=== PATIENT | male | born 1955 | race Caucasian/White ===

== ENCOUNTER 2016-06-18 17:56 | Inpatient (IN) | payer OTHER, MEDICAID ==
[~2016-06-18] VITALS: Ht 177.8 cm; Wt 79.9 kg
[~2016-06-18 17:56] MED LIST: AMLO10TA5 PO; ATEN100T4 PO; CLON0.2T11 PO; DOXA1TAB PO; HYDR1TAB69 PO; HYDR25TA4 PO
[2016-06-18 18:11] VITALS: BP 185/129; PULSE 110; RESP 26; O2SAT 95
[2016-06-18 18:13] VITALS: BP 185/129; PULSE 99; RESP 34; O2SAT 98
--- NOTE | 2016-06-18 18:15 | ED.REPORT ---
HPI-Neurologic Deficit Date of Service Jun 18, 2016 ED Provider: José BurnetteO. A 60 year old male with a history of hypertension, degenerative joint disease, obstructive neuropathy, GERD, and kidney carcinoma presents to the ED accompanied by his girlfriend with right sided numbness and weakness onset yesterday. He also reports blurred vision. His speech was not evaluated at onset. The patient's symptoms prevented him from walking for over 3 hours, but eventually improved. Today the patient reports headache, right-sided facial numbness, mild right-sided weakness, and right arm pain. His girlfriend reports that his speech is slurred now compared to baseline. His only similar symptoms in the past have been right-sided visual field loss. Nursing Notes Stated Complaint: STROKE SYMPTOMS Chief Complaint: Neuro Symptoms/ Deficits Nursing Notes Reviewed: Yes Allergies: Coded Allergies: No Known Allergies (Unverified Allergy, Unknown, 06/18/16) Scheduled Doxazosin Mesylate (Doxazosin Mesylate) 8 Mg Tablet 4 MG PO BID Hydrochlorothiazide (Hydrochlorothiazide) 25 Mg Tablet 25 MG PO DAILY Lisinopril (Lisinopril) 5 Mg Tablet 10 MG PO DAILY General Time Seen by Provider: 18:15 Chief Complaint Weakness arm... (Right), Weakness leg... (Right) Hx Obtained From: Patient Arrived By: Walk-in Sudden in Onset?: Yes Onset Occurred: Yesterday Symptom Duration: Since onset Progression Since Onset: Gradually improving Location: : Arm right: Head Quality: Painful Severity: Current: Moderate Severity: Maximum: Moderate Associated with: Reports: Headache, Denies: Fever Pertinent Negative: Relieved by nothing Related History: Reports: Hypertension Immunizations: None up to date Recent Healthcare: No recent doctor visit Similar Sx Previous: No Risk Factors NIH Stroke Scale Level of Consciousness: Alert and responsive (0) Ask Month & Age: 0 questions right (2) Open/Close Eyes/Hand Biomedical Equipment Tech: Performs both tasks (0) Horizontal EO Movements: None (0) Facial Palsy: Minor paralysis (1) Right Arm Motor Drift (10s): No drift 10 sec (0) Left Arm Motor Drift (10s): No drift 10 sec (0) Right Leg Motor Drift (5s): No drift 5 sec (0) Left Leg Motor Drift (5s): No drift 5 sec (0) Limb Ataxia FNF/Heel-Johnson: No ataxia (0) Sensation (Arms/Legs/Face): Pinprick less sharp (1) Language Aphasia: No aphasia, normal (0) Dysarthria: Slurring intelligible (1) NIHSS Score: 5 Time NIHSS Performed: 18:20 Date NIHSS Performed: Jun 18, 2016 Past Medical History Past Medical History Hypertension Longstanding problems with 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 Obstructive uropathy GERD Clear cell carcinoma of right kidney Past Surgical History Cervical disks fused in 2 prior C-spine surgeries and has had 1 lumbar spine surgery, all in [facility] Nephrectomy Smoking History Current Every Day Smoker Occupation Disabled due to back injuries Ambulatory Status Independent Review of Systems Constitutional: Denies: Fever Eyes: Reports: Blurred bilateral Musculoskeletal: Reports: Extremity pain (Right arm) Neurologic: Reports: Headache, Numbness (Right-sided), Slurred speech, Weakness (Right-sided) Complete sys rev & neg: except as marked. Physical Exam Initial Vital Signs Vital Signs (First) Date Time Temp Pulse Resp B/P Pulse Ox O2 Delivery O2 Flow Rate FiO2 06/18/16 18:11 36.7 110 26 185/129 95 Room Air Initial VS: Reviewed ENT: Conjunctiva normal, No scleral icterus Abdomen / GI: Soft, Non-tender Skin: Warm, Dry, No cyanosis Psychiatric: Mood/affect normal, Behavior normal, Normal thought content General/Constitutional: Awake, Alert, No acute distress Head / Eyes: Atraumatic, Normocephalic Respiratory / Chest: Breath sounds NL, Breath sounds = bilat, No respiratory distress Cardiovascular: Heart rate NL, Regular rhythm, Heart sounds NL Mental Status: Positive: Confused Speech: Positive: Slurred Focal Weakness: Positive: Lower extremity R, Upper extremity R Sensory Deficit: Positive: Lower extremity R Interpretation & Diagnostics CT ANGIO HEAD AND NECK: IMPRESSION: 1. No high-grade stenosis or occlusion of the central intracranial arteries with evaluation of the distal branches limited due to motion artifact. 2. No definite acute intracranial abnormality. 3. No high-grade stenosis or occlusion of the head and neck arteries. Dictated by: Radiologist Bryan Bedoya M.D. on 06/18/2016 at 20:50 Lab Results Interpretation Result Diagram: 06/18/16 1813 06/18/16 1813 Test 06/18/16 18:13 06/18/16 19:22 06/18/16 20:16 White Blood Count 14.2th/mm3 (3.8-10.1) Red Blood Count 5.32mil/mm3 (4.40-5.80) Hemoglobin 16.1g/dL (13.8-17.2) Hematocrit 47.8% (41.0-50.0) Mean Corpuscular Volume 89.8fL (81-100) Mean Corpuscular Hemoglobin 30.3pg (27.0-35.0) Mean Corpuscular Hemoglobin Concent 33.7% (32.0-37.0) Red Cell Distribution Width 13.1% (12.3-15.4) Platelet Count 235bil/L (150-400) Neutrophils (%) (Auto) 63.0% (40-74) Lymphocytes (%) (Auto) 22.2% (14-46) Monocytes (%) (Auto) 12.0% (4-12) Eosinophils (%) (Auto) 2.0% (0-5) Basophils (%) (Auto) 0.4% (0-3) Hold Purple Top Tube Received (Received) Prothrombin Time 10.0sec (8.1-12.5) Prothromb Time International Ratio 0.94ratio Hold Blue Top Tube Received (Received) Sodium Level 140mEq/L (134-144) Potassium Level 4.1mEq/L (3.5-5.2) Chloride Level 100mEq/L (97-108) Carbon Dioxide Level 28mmol/L (18-29) Blood Urea Nitrogen 23mg/dL (6-24) Creatinine 1.11mg/dL (0.76-1.27) Estimat Glomerular Filtration Rate 72mL/min (>59) Glucose Level 104mg/dL (60-99) Calcium Level 9.5mg/dL (8.5-10.1) Total Bilirubin 0.6mg/dL (0.0-1.2) Aspartate Amino Transf (AST/SGOT) 28U/L (0-50) Alanine Aminotransferase (ALT/SGPT) 27U/L (0-44) Alkaline Phosphatase 119U/L (25-150) Total Protein 7.3g/dL (6.4-8.4) Albumin 4.1g/dL (3.4-5.0) Hold Red Top Tube Received (Received) Hold Aubrey Top Tube Received (Received) Hold Salgado Top Tube Received (Received) Urine Color Yellow (YELLOW) Urine Appearance Clear (CLEAR,HAZY) Urine pH 5.5 (5.0-8.0) Urine Specific [place] 1.025 (1.003-1.035) Urine Protein Negativemg/dL (NEG,TRACE) Urine Glucose (UA) Negativemg/dL (NEGATIVE) Urine Ketones Negativemg/dL (NEGATIVE) Urine Occult Blood Small (NEGATIVE) Urine Nitrite Negative (NEGATIVE) Urine Bilirubin Negative (NEGATIVE) Urine Urobilinogen Normalmg/dL (NORMAL) Urine Leukocyte Esterase Negative (NEGATIVE) Urine RBC 0-2/hpf (0-2) Urine WBC 0-5/hpf (0-5) Urine Epithelial Cells None/hpf (NONE-MOD) Urine Crystals None seen (NONE SEEN) Urine Bacteria Few/hpf (NONE-FEW) Urine Hyaline Casts None/lpf (NONE) Urine Granular Casts None seen (NONE SEEN) Urine Waxy Casts None seen (NONE SEEN) Urine Red Blood Cell Casts None seen (NONE SEEN) Urine White Blood Cell Casts None seen (NONE SEEN) Urine Mucus Present (None Seen) Urine Trichomonas None seen (NONE SEEN) Urine Yeast None (NONE SEEN) Urinalysis Comment None Urine Culture Reflexed Not indicated Urine Opiates Screen Negative Urine Methadone Screen Negative Urine Barbiturates Screen Negative Urine Amphetamines Screen Negative Urine Benzodiazepines Screen Negative Urine Cocaine Metabolite Screen Negative Urine Cannabinoids Screen Negative Troponin T < 0.010ug/L (0.0-0.011) ECG Interpretation ECG Interpretation: Sinus rhythm rate [address] elevation in leads V2 and V3 No STEMI Time: 18:38 Interpreted by: ED physician X-Ray Chest Interpretation Chest Xray Interpretation: IMPRESSION: 1. No acute cardiopulmonary disease. Dictated by: Bryan Bedoya M.D. on 06/18/2016 at 19:35 View: Portable, 1 view Interpretation / Wet Read by: Interpret - Radiologist CT Head Interpretation IMPRESSION: 1. No acute intracranial abnormality. 2. Moderate ethmoid sinus mucosal disease. Dictated by: Bryan Bedoya M.D. on 06/18/2016 at 19:12 Study: Head CT no contrast Interpretation / Wet Read by: Interpret - Radiologist Re-Eval/Medical Decision Med Decision/Clinical Course 52-year-old male presents with dysarthria and right-sided weakness. Unfortunately he is well beyond the time window for thrombolytics. CT scan of his brain did not show any acute abnormalities. He did have some neck pain and associated headache. CT angiogram was performed to evaluate for dissection. The CTA also will evaluate for an acute occlusion. No evidence of occlusive disease, aneurysm or dissection. He will be treated with aspirin and be admitted for routine stroke evaluation. Source of Hx: Old records Re-Evaluation/Progress : Time of Eval: 19:46 Patient Status: Condition improved Re-Evaluation/Progress Note: Discussed with patient x-ray and CT results, diagnosis, and plan for admit. Patient agrees with plan for care and all questions were addressed. Consultation : Referral / Consult Name: Pasha Kelly MD Consulted With: Hospitalist Call Returned at: 19:43 Cotton Baler: Agrees with eval, Agrees with plan, Accepts admit Counseled Regarding: Diagnosis, Need for admission Discharge & Departure Impression: Primary Impression: Stroke CVA mechanism: unspecified Qualified Code: I63.9 - Cerebral infarction, unspecified Disposition: ADMITTED TO HOSPITAL Discharge Condition All VS Reviewed: Yes Condition: Stable Referrals: Renee Agudelo MD (PCP) Parvizibmikael Attestation Portions of this note were transcribed by Anjana Shah. I, Dr. Kaiser, personally performed the history, physical exam, and medical decision-making; I reviewed and confirmed the accuracy of the information in the transcribed note. Signed by: Radha Contreras, 06/18/2016, 21:09 copies to: Renee Agudelo MD, Todd P DO Jun 18, 2016 18:15 ANJANA SHAH Jun 18, 2016 18:44 ANJANA SHAH Jun 18, 2016 18:44
[2016-06-18 18:38] LABS: BASOPHILS % (AUTO) 0.4 % (0-3); Mean Corpuscular Hemoglobin 30.3 pg (27.0-35.0); Mean Corpuscular Volume 89.8 fL (81-100); Platelet Count 235 bil/L (150-400)
[2016-06-18 18:42] LABS: INR 0.94 ratio
--- NOTE | 2016-06-18 19:14 | DRSVH ---
PROCEDURE: CT BRAIN WITHOUT CONTRAST ([id number]) INDICATIONS: right sided weakness, dysarthria TECHNIQUE: Noncontrast 4.5 mm thick angled axial sections acquired from the foramen magnum to the vertex, with c oronal reformats. COMPARISON: None. FINDINGS: Image quality: Excellent. CSF spaces: Basal cisterns are patent. No extra-axial fluid collections. Ventricles are normal in size and shape. Brain: No intracranial hemorrhage, mass, or mass effect. Moreno-white matter interface is preserved. Skull and face: Calvarium and visualized facial bones are intact, without suspicious lesions. Sinuses: Visualized sinuses demonstrate moderate mucosal thickening within the ethmoid sinuses. Mas toid air cells are clear. IMPRESSION: 1. No acute intracranial abnormality. 2. Moderate ethmoid sinus mucosal disease. Dictated by: Bryan Bedoya M.D. on 06/18/2016 at 19:12 Approved by: Bryan Bedoya M.D. on 06/18/2016 at 19:12
--- NOTE | 2016-06-18 19:36 | DRSVH ---
PROCEDURE: X-RAY CHEST ONE VIEW ([id number]) INDICATIONS: stroke, hypertension TECHNIQUE: One view of the chest was acquired. COMPARISON: Chest x-ray 01/22/11. FINDINGS: Surgical changes and devices: Postsurgical changes are again partially visualized in the lower cervic al spine. Lungs and pleura: No pleural effusions or pneumothorax. Lungs are clear. Mediastinum: Mediastinal contours appear normal. Heart size is normal. Bones and chest wall: No suspicious bony lesions. A few old right healed rib fractures are again no erin. Overlying soft tissues appear unremarkable. IMPRESSION: 1. No acute cardiopulmonary disease. Dictated by: Bryan Bedoya M.D. on 06/18/2016 at 19:35 Approved by: Bryan Bedoya M.D. on 06/18/2016 at 19:35
[2016-06-18 19:54] VITALS: BP 173/115; PULSE 89; RESP 22; O2SAT 95
[2016-06-18 20:03] LABS: APPEARANCE,URINE CLEAR (CLEAR,HAZY); COLOR,URINE YELLOW (YELLOW); PH,URINE 5.5 (5.0-8.0)
[2016-06-18 20:04] LABS: OCCULT BLOOD,URINE SMALL (NEGATIVE); UROBILINOGEN,URINE NORMAL (NORMAL)
[2016-06-18] MEDS ORDERED: 0.9% Sodium Chloride 1,000 ML IV ONE (20:25)
[2016-06-18] MEDS ORDERED: 0.9% Sodium Chloride 1,000 ML IV PRN (20:31)
[2016-06-18] MEDS ORDERED: Labetalol 5 mg/mL 4 mL Inj IVPUSH PRN (20:35)
[2016-06-18] MEDS ORDERED: Ondansetron 2 mg/mL 2 mL Inj IV PRN (20:35)
[2016-06-18] MEDS ORDERED: Polyethylene Glycol (PEG) 17 Gm Powder PO PRN (20:35)
[2016-06-18] MEDS ORDERED: Alum-Mag Hydrox-Simeth 30 mL Suspension PO PRN (20:35)
[2016-06-18] MEDS ORDERED: hydrALAZINE 20 mg/mL Inj IVPUSH PRN (20:35)
--- NOTE | 2016-06-18 20:52 | DRSVH ---
PROCEDURE: CT ANGIO HEAD AND NECK (P) INDICATIONS: stroke, severe headache TECHNIQUE: After the administration of intravenous contrast, 1 mm thick sections acquired from the aortic arch t hrough the [place] of [place]. Post-contrast 4.5 mm thick sections then re-acquired from the foramen m agnum to the vertex. 3-dimensional qaddmuv-pokocbyih-zudahltdcw (MIP) and/or volume rendering reform ats were acquired of the central intracranial vasculature and neck separately. For radiation dose re duction, the following was used: automated exposure control, adjustment of mA and/or kV according to patient size. COMPARISON: [facility], CT, CT BRAIN WO CON, 06/18/2016, 18:45. FINDINGS: Image quality: There is motion artifact limiting evaluation. BRAIN: CSF spaces: Ventricles are normal in size and shape. Basal cisterns are patent. No extra-axial flu id collections. Brain: No intracranial mass or mass effect. Moreno-white matter interface appears preserved. No abno rmal intracranial enhancement. Skull and face: Calvarium and facial bones appear intact, without suspicious lesions. Orbits appear normal. Sinuses: There is a mucosal polyp or sinus retention cyst within the inferior left maxillary sinus. There is moderate mucosal thickening within the bilateral ethmoid sinuses. HEAD CT ANGIOGRAPHY: Anterior circulation: Intracranial internal carotid arteries are normal in size and flow. The flow within the paired anterior cerebral arteries is patent bilaterally. The flow within the middle cereb ral arteries is patent bilaterally. The anterior communicating artery is seen. No high-grade stenos is, occlusion, or discrete aneurysm identified. Evaluation of the distal branches is limited by sammie on artifact. Posterior circulation: Visualized portions of the vertebral arteries demonstrate normal caliber, and join to form a normal appearing basilar artery. Flow within the posterior cerebral arteries is liao nt bilaterally. There is persistent circulation on the left, with the posterior cerebral arter y supplied by the posterior communicating artery. A right posterior communicating artery is also pre sent. No high-grade stenoses or occlusions identified but evaluation limited in the distal branches due to motion artifact. 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 The origins of the common carotid arteries appear patent. The common carotid arteries demonstrate normal caliber and courses. The bifurcation regions demonstrate mild atherosclerotic plaque but rd ear widely patent. The internal carotid arteries demonstrate normal calibers and courses. Posterior circulation: The origins of the vertebral arteries both appear widely patent. The more jackson perior extracranial portions of both vertebral arteries also demonstrate normal courses and calibers. They join to form a normal appearing basilar artery. Soft tissues: Visualized neck soft tissues demonstrate no suspicious abnormalities. Bones: There are postsurgical changes within the cervical spine status post anterior fixation and fus ion from C3-C7. There is also fusion of C7 and T1. There is minimal anterolisthesis at C2-C3. IMPRESSION: 1. No high-grade stenosis or occlusion of the central intracranial arteries with evaluation of the d istal branches limited due to motion artifact. 2. No definite acute intracranial abnormality. 3. No high-grade stenosis or occlusion of the head and neck arteries. Dictated by: Bryan Bedoya M.D. on 06/18/2016 at 20:50 Approved by: Bryan Bedoya M.D. on 06/18/2016 at 20:50
--- NOTE | 2016-06-18 21:22 | PCM.HPMED ---
Subjective Date of Service Jun 18, 2016 Primary Provider: Admitting Physician: Primary Care Physician: Renee Agudelo MD Attending Physician: Chief Complaint: slurred speech, weakness History of Present Illness: A 60 year old male with a history of hypertension, degenerative joint disease, obstructive uropathy, peripheral neuropathy, GERD, alcohol abuse in remission, polysubstance abuse, and kidney carcinoma s/p nephrectomy presents to the ED accompanied by his girlfriend for complaints of right sided numbness, weakness, and slurred speech that began yesterday afternoon. Patient reports prior to yesterday, he was at baseline and able to perform all his ADLs. He reports helping a friend move yesterday then suddenly developed these symptoms while he was at home. He was unable to get up for a couple of hours due to the weakness and he was not able to get help because his girlfriend was not home at the time. He reports his symptoms improved mildly over time, but reports he did have a horrible headache, blurred vision, nausea, and right sided pain. He denies any history of MIs or CVAs or bleeding disorders. He denies any incontinence or vision loss. He reports he has not had any new changes in his lifestyle; he continues to smoke a pack per day and reports he is compliant on his blood pressure medications. He reports he has been sober for a few years now and reports his last drug usage was 6 months ago. He has had a history of meth and heroine usage. In the ED, he was hypertensive in the 180s/120s. He received a dose of Aspirin and his initial CT brain was unremarkable besides some ethmoid mucosal thickening. His CBC and CMP were reassuring. His symptoms continue to improve and his NIHSS was a 5 for disorientation and mild facial asymmetry and loss of sensation. He also had a CT angio of brain and neck, but results were pending. PCP Renee Agudelo Review of Systems: 12 Point ROS negative except as stated in the HPI Allergies Coded Allergies: No Known Allergies (Unverified Allergy, Unknown, 06/18/16) Home Medications HCTZ Lisinopril Doxazosin PMH Chronic Hypertension Longstanding problems with 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 Obstructive uropathy Peripheral Neuropathy GERD Clear cell carcinoma of right kidney s/p nephrectomy Past Surgical History Cervical disks fused in 2 prior C-spine surgeries and has had 1 lumbar spine surgery, all in [facility] Nephrectomy Smoking History Current Every Day Smoker Occupation Disabled due to back injuries Social History Hx Alcohol Use: No (denies) Hx Substance Use: No (previous methamphetamine) Hx Tobacco Use: Yes Smoking Status: Current Every Day Smoker Living Arrangement: with Family Exam Vital Signs Vital Sign - Last Date Time Temp Pulse Resp B/P Pulse Ox O2 Delivery O2 Flow Rate FiO2 06/18/16 18:13 36.6 99 34 185/129 98 Room Air Exam Gen: Well developed male who appears in NAD HEENT: Normocephalic, atraumatic, PERRLA, EOMI, Facial features symmetrical at time of this exam, Oropharynx non-erythematous Neck: Soft, non-tender, no bruits appreciated CV: RRR, no m/r/c noted, No JVD noted. Resp: CTAB, no w/r/c, normal effort Abd: Soft, non-tender, non-distended, normoactive BS present MSk: Mildly decreased right machinist mechanic strength, otherwise full ROM and MS grossly intact and equal b/l Neuro: CN2-12 grossly intact. Light sensation grossly intact. DTRs 2+ and equal. Gait/balance not tested due to nausea. Mild slurring of speech still noted. Slightly disoriented to distant history. Skin: Warm, dry, no rashes noetd Psych: Appropriate mood and affect. Lab and Diagnostics Result Diagram: 06/18/16181206/18/161812 X-Rays, CTs and MRIs PROCEDURE: CT BRAIN WITHOUT CONTRAST ([id number]) INDICATIONS: right sided weakness, dysarthria IMPRESSION: 1. No acute intracranial abnormality. 2. Moderate ethmoid sinus mucosal disease. PROCEDURE: X-RAY CHEST ONE VIEW ([id number]) FINDINGS: Surgical changes and devices: Postsurgical changes are again partially visualized in the lower cervical spine. Lungs and pleura: No pleural effusions or pneumothorax. Lungs are clear. Mediastinum: Mediastinal contours appear normal. Heart size is normal. Bones and chest wall: No suspicious bony lesions. A few old right healed rib fractures are again noted. Overlying soft tissues appear unremarkable. IMPRESSION: 1. No acute cardiopulmonary disease. 12-lead ECG Sinus rhythm rate [address] elevation in leads V2 and V3 No STEMI Per ED physician read 06/18/16 Assessment & Plan A 60 year old male with a history of hypertension, degenerative joint disease, obstructive uropathy, peripheral neuropathy, GERD, alcohol abuse in remission, polysubstance abuse, and kidney carcinoma s/p nephrectomy who presents with stroke like symptoms since yesterday afternoon. Not a candidate for thrombolytic therapy. His symptoms are mostly resolved at current time of assessment, he is hemodynamically stable except high blood pressure. So far, initial imaging has been negative despite it being over 24 hours since symptom onset. #Stroke like symptoms, acute -Likely due to Ischemic stroke due to patient's symptoms persisting over 24 hours. -Aspirin given in the ED, will continue daily. Will initiate Statin QHS. Lipid panel pending. -CT brain unremarkable, CTA pending -MRI stroke protocol and Echocardiogram and Swallow eval tomorrow AM. -Heparin Q8h for DVT prophylaxis -Permissive Hypertension for tonight. Goal BP <220/120 -Zofran IV prn nausea #Chronic Hypertension, POA -Continue patient's home meds --Since it is over 24 hours since symptom onset, it is reasonable to start anti- hypertensive therapy in the AM. #Chronic Lower Back Pain, POA -Patient is on disability due to this -Vicodin 5/325mg prn pain #Obstructive Uropathy, POA -Will defer to day team to re-start patient's Doxazosin #H/o Alcohol abuse, POA -Patient reports he has been sober for a couple of years now #H/o Polysubstance abuse, POA -Tox Screen pending. Likely is a risk factor for his CVA #Tobacco Dependence, POA -Counseling for cessation provided -Nicotine patch 14mg prn #Ethmoid Sinusitis, POA -As demonstrated on CT scan, patient not complaining of any sinus issues currently. -Encourage patient to seek outpatient management if problematic. Tylenol prn fever/pain Bowel Regimen prn constipation Pain Evaluation: Adequate Pain Control VTE Prophylaxis: Sub-Q Heparin (Unfractionated) Resuscitation Status: CPR: Attempt Resuscitation Attending Statement The patient was seen and examined together with Dr. Carbajal on 06/18 and I agree with the history, exam and plan as outlined in the note above. copies to: Renee Agudelo MD, Hong D DO Jun 18, 2016 19:54 Pasha Kelly MD Jun 19, 2016 01:04
[2016-06-18 21:29] VITALS: BP 177/105; PULSE 86; RESP 18; O2SAT 96
[2016-06-18 21:36] VITALS: PULSE 87
[2016-06-18] MEDS: 0.9% Sodium Chloride 1,000 ML IV SCH (22:51)
[2016-06-18] MEDS ORDERED: HYDR25TA4 PO (23:02)
[2016-06-18] MEDS ORDERED: LISI-571 PO (23:02)
[2016-06-18] MEDS ORDERED: DOXA8TAB73 PO (23:02)
[2016-06-19] VITALS (8 sets, daily range): BP systolic 149–196; BP diastolic 92–105; PULSE 79–94; RESP 16–18; O2SAT 94–100
[2016-06-19] MEDS ORDERED: Acetaminophen IV 1,000 MG in IV Premix 1 EACH IV PRN (00:35)
[2016-06-19] MEDS: Heparin 5,000 Unit/mL Inj SUBQ SCH ×3 (00:53→16:24)
--- NOTE | 2016-06-19 01:24 | NUR ---
Admit notes: Pt able to ambulate gurney to bed with assist. Pt states symptoms began at 1630 06/17. Speech slightly mumbled, improved since yesterday per pt. Alert and oriented x3. Reports numbness to right cheek. Slight numbness to right hand/arm and foot which is improving. Right leg slightly weaker than left. Difficulty touching right finger to nose with eyes closed. States light sensitivity, although does have some of this at baseline. Reports headache which started when sx began yesterday, improving slightly; did received Tylenol in the ER. Oriented to room and call light. Bed alarm on for pt safety.
--- NOTE | 2016-06-19 05:58 | NUR ---
RN swallow screen: Unable to complete RN swallow screen as pt has right facial numbness.
[2016-06-19] MEDS: 0.9% Sodium Chloride 1,000 ML IV SCH ×2 (06:29→16:14)
[2016-06-19 07:16] LABS: BASOPHILS % (AUTO) 0.9 % (0-3); EOSINOPHILS % (AUTO) 3.5 % (0-5); Mean Corpuscular Hemoglobin 30.4 pg (27.0-35.0); Mean Corpuscular Volume 89.9 fL (81-100); NEUTROPHILS % (AUTO) 54.8 % (40-74); Platelet Count 214 bil/L (150-400)
--- NOTE | 2016-06-19 09:05 | PCM.PNMED ---
Subjective Date of Service Jun 19, 2016 Subjective No overnight events. He states slur speech has improved. Right sided facial numbness continues, but has decreased quite a bit. Patient reports shoulder pain. He admits to a fall, lying outside for approximately 3hrs. He denies any lost of consciousness. Rather, he felt weak to the knees and collapse. Exam Vital Signs Vital Sign - Last Date Time Temp Pulse Resp B/P Pulse Ox O2 Delivery O2 Flow Rate FiO2 06/19/16 04:50 36.4 80 16 149/100 96 Room Air Intake and Output 06/18/16 06/18/16 06/19/16 Cumulative From/Thru 15:00 23:00 07:00 06/18/16 21:06 - 06/19/16 06:47 Intake Total 999 ml 998 ml 1997 ml Output Total 900 ml 900 ml Balance 999 ml 98 ml 1097 ml Intake Oral 0 ml 0 ml IV Total 999 ml 998 ml 1997 ml Output Urine Total 900 ml 900 ml Exam Gen: No acute distress, well-developed, well-nourished, appropriately interactive HEENT: Normocephalic, atraumatic. External ears without defect. Pupils equal, round, and reactive to light and accommodation. Anicteric sclerae, moist conjunctivae, and no lid lag. Oropharynx free of erythema and cobble stoning with moist mucosa. Neck: supple, no JVD Cardio: Regular rate and rhythm with no murmurs, rubs, or gallops appreciated Pulm: b/l air sound, no crackles, wheezes, or rhonchi. Normal respiratory effort with no use of accessory muscles. Abd: positive bowel tone. Soft, nontender, nondistended. Extremities: No clubbing, cyanosis, edema, or lymphadenopathy appreciated. Shoulder without swelling, erythema, mildly restricted upon abduction. Skin: Normal temperature, turgor, and texture; no rash, ulcers, or subcutaneous nodules appreciated. Neuro: Cranial nerves grossly intact. Normal muscle strength, tone, and bulk. Abnormal Right finger to nose test, Heal to lassiter test normal. Psyc: Normal mood and affect. Alert and oriented to person, place, and time. IVs and Medications Medications Reviewed: Medications were reviewed in detail Lab and Diagnostics Result Diagram: 06/19/1662406/19/16624 X-Rays, CTs and MRIs PROCEDURE: MRI STROKE PROTOCOL Pre- and post-contrast brain MRI, non-contrast brain MR angiogram, pre- and postcontrast neck MR angiogram INDICATIONS: Right sided weakness IMPRESSION: BRAIN MRI: 1. Subacute left thalamic and medial temporal lobe infarcts. 2. Mild volume loss and small vessel ischemic disease. BRAIN MR ANGIOGRAM: Negative cerebral MR angiography. NECK MR ANGIOGRAM: 1. No internal carotid artery stenosis bilaterally. 2. Patent right vertebral artery. Suboptimally visualized left proximal vertebral artery, which appears to arise directly from the thoracic aortic arch. Left vertebral artery is otherwise patent. The estimate of stenosis included in the report of the imaging study was calculated using the NASCET method Dictated by: Joseph Pulido M.D. on 06/19/2016 at 18:43 PROCEDURE: CT ANGIO HEAD AND NECK (P) INDICATIONS: stroke, severe headache IMPRESSION: 1. No high-grade stenosis or occlusion of the central intracranial arteries with evaluation of the distal branches limited due to motion artifact. 2. No definite acute intracranial abnormality. 3. No high-grade stenosis or occlusion of the head and neck arteries. Dictated by: Bryan Bedoya M.D. on 06/18/2016 at 20:50 PROCEDURE: CT BRAIN WITHOUT CONTRAST INDICATIONS: right sided weakness, dysarthria IMPRESSION: 1. No acute intracranial abnormality. 2. Moderate ethmoid sinus mucosal disease. PROCEDURE: X-RAY CHEST ONE VIEW FINDINGS: Surgical changes and devices: Postsurgical changes are again partially visualized in the lower cervical spine. Lungs and pleura: No pleural effusions or pneumothorax. Lungs are clear. Mediastinum: Mediastinal contours appear normal. Heart size is normal. Bones and chest wall: No suspicious bony lesions. A few old right healed rib fractures are again noted. Overlying soft tissues appear unremarkable. IMPRESSION: 1. No acute cardiopulmonary disease. 12-lead ECG Sinus rhythm rate [address] elevation in leads V2 and V3 No STEMI Per ED physician read 06/18/16 Cardiac Echo Impressions Echocardiogram Report Interpretation Summary 1) Normal left ventricular size and thickness with borderline reduced systolic function (EF 50-55%). 2) Mid anterolateral wall is hypokinetic. 3) No significant valvular abnormalities. 4) Injection of contrast documented no interatrial shunt. 5) Findings suggestive of ischemic heart disease. 6) No prior Echo available for comparison. Assessment & Plan A 60 year old male with a history of hypertension, degenerative joint disease, obstructive uropathy, peripheral neuropathy, GERD, alcohol abuse in remission, polysubstance abuse, and kidney carcinoma s/p nephrectomy who presents with stroke like symptoms since yesterday afternoon. Not a candidate for thrombolytic therapy. His symptoms are mostly resolved at current time of assessment, he is hemodynamically stable except high blood pressure. So far, initial imaging has been negative despite it being over 24 hours since symptom onset. #Stroke like symptoms, acute -MRI showed Left lacuna and medial temporal lobe embolic stroke -Permissive Hypertension hypertension for 24hrs -Dual antiplatelet therapy. Atorvastatin 40mg daily -pharmacy clerk for any arrhythmias #Chronic Hypertension, POA -Continue patient's home meds -added metoprolol 25mg TID #Ischemic heart disease -Will order stress testing in the AM #Right shoulder pain, present on admission, stable -acetaminophen PRN -monitor, will do shoulder xray if worsen. #Chronic Lower Back Pain, POA -Patient is on disability due to this -Vicodin 5/325mg prn pain #Obstructive Uropathy, POA -Will defer to day team to re-start patient's Doxazosin #H/o Alcohol abuse, POA -Patient reports he has been sober for a couple of years now #H/o Polysubstance abuse, POA -Tox Screen pending. Likely is a risk factor for his CVA #Tobacco Dependence, POA -Counseling for cessation provided -Nicotine patch 14mg prn #Ethmoid Sinusitis, POA -As demonstrated on CT scan, patient not complaining of any sinus issues currently. -Encourage patient to seek outpatient management if problematic. Tylenol prn fever/pain Bowel Regimen prn constipation DVT prophylaxis VTE Prophylaxis: Sub-Q Heparin (Unfractionated) Resuscitation Status: CPR: Attempt Resuscitation Time spent 25 minutes Attending Statement I have seen and evaluated patient at bedside in addition to directly supervising care provided by resident physician. I agree with above documentation. Will withdraw Aspirin, utilize Clopidogrel only on DC as per current ischemic stroke treatment recommendations. Yousuf Cisneros DO Jun 19, 2016 09:05 Adam Marie DO Jun 20, 2016 08:44
--- NOTE | 2016-06-19 10:09 | NUR ---
Evaluation completed. Rec: Thin/Soft. Medication as tolerated. Discussed with RN. MOVING CONSULTANT to follow Please go to "Notes" then click on "Assessments and Notes" (bottom left corner of screen). Then select appropriate discipline tab on top of screen.
--- NOTE | 2016-06-19 11:35 | NUR ---
Case Management: Clarification of patient status: inpatient per MD order on 06/19/16. Myriam Koo RN
--- NOTE | 2016-06-19 14:00 | NUR ---
Emotional concerns Pt slightly tearful, sts "I'm scared". This RN advised pt, okay and very normal to be scared. Pt sts "I have too much to live for and too many people I want to be here for. Pt reviewed has many regrets regarding upbringing with children being too busy and not spending time with them. This RN listened attentively, encouraged pt to talk with family about regarding. Pt reports "this has been a wake up call, I have too many things I want to do" This RN encouraged pt to review this experience as an opportunity for changes. Call light with in reach, will continue to monitor.
--- NOTE | 2016-06-19 14:41 | NUR ---
Social Work-initial assessment/ CD assessment: Data:EMR Reviewed. Pt is a 60 y/o male who was admitted on 06/18/16 for stroke per H&P. Pt's insurance is [employer] and PCP is Renee Agudelo MD. EMR Reviewed. SW met with pt at bedside to discuss discharge planning, SW role explained. Pt informed SW that he has been living with friends, but plans on staying at [facility] when medically stable. Pt confirms he has the funds for this. Pt does not use any DME and drives. Pt has no HH or SNF history. Pt has no drink mixer care or VA benefits. Pt has completed DPOA/advanced directive, SW encouraged pt to bring a copy into the hospital. PT/OT have cleared pt for home with outpt services. Pt states he has a history of drug and alcohol use, but has been sober from drinking for 3 years and not quite as long with drugs. Pt plans on never doing that stuff again. Pt states he has been to treatment several times, but it never seemed to help until he was ready to make the change. Pt declining the need for any CD resources. Pt's SO to provide transport to motel at discharge. Phone number and plan written on white board in room. No anticipated discharge needs. SW will continue to follow if needs arise. Assessment:Pt who is independent at baseline. Plan:Pt to discharge to [facility] when medically stable. Pt has been clean and sober for about 3 years, declining any resources. PT/OT have cleared pt for home with outpt services. No anticipated discharge needs. SW will continue to follow if needs arise. TED Spaulding
--- NOTE | 2016-06-19 14:44 | DRSVH ---
[facility] [address] [place] [address] Echocardiogram Report Name: JOSE MANUEL BOSTON CStudshane Bronson e: 06/19/2016 Height: 70 in Hospital Exam Location: [facility] Weight: 179 lb Gender: Male BSA: 2.0 m2 : 1955 Age: 60 yrs BP: 149/100 mmHg Reason For Study: Stroke Ordering Physician: Performed By: Drea Song Referring Physician: Renee Agudelo Interpretation Summary 1) Normal left ventricular size and thickness with borderline reduced systolic function (EF 50-55%). 2) Mid anterolateral wall is hypokinetic. 3) No significant valvular abnormalities. 4) Injection of contrast documented no interatrial shunt. 5) Findings suggestive of ischemic heart disease. 6) No prior Echo available for comparison. Procedure: A two-dimensional transthoracic echocardiogram with color flow and Doppler was performed. The study quality was technically adequate. There is no prior echocardiogram noted for this patient. A saline contrast injection was performed to assess for cardiac shunting. The patient was in normal sinus rhythm during the exam. Left Ventricle: The left ventricle is normal in size. Left ventricular wall thickness is normal. The ejection fraction is estimated to be 50-55%. Left ventricular systolic function is borderline reduced. Mid anterolateral wall is hypokinetic. Assessment of diastolic parameters indicates a relaxation abnormality of the left ventricle, consistent with normal filling pressures. Right Ventricle: The right ventricle is normal in size and function. Atria: Both atria are normal in size. The interatrial septum is intact with no evidence for an atrial septal defect. There is no Doppler evidence for an interatrial shunt. Injection of contrast documented no interatrial shunt. Mitral Valve: The mitral valve is normal in structure and function. There is mild mitral regurgitation. Aortic Valve: The aortic valve is normal in structure and function. There is no aortic valve stenosis. No aortic regurgitation is present. Tricuspid Valve: The tricuspid valve is normal in structure and function. Pulmonary artery pressures cannot be estimated because of the lack of a measurable TR jet velocity. Pulmonic Valve: The pulmonic valve is normal in structure and function. There is a trace or physiologic amount of pulmonic regurgitation. Great Vessels: The aortic root is normal size. The ascending aorta is at the upper limits of normal in size. The aortic arch is normal in size. The inferior vena cava was not visualized. Pericardium/ Pleura There is no pericardial effusion. MMode/2D Measurements & Calculations LVIDd: 5.5 cm LA dimension: 3.5 cm RA long axis LVOT diam: 2.3 cm LVIDs: 3.6 cm AoV Opening FS: 33.5 % LA A2 area: 16.5 cm RA area EPSS: 1.1 cm LA A4 area: 20.7 cm Ao root diam IVSd: 1.0 cm LA length (vol) : 15.1 cm LVPWd: 1.3 cm RA vol Aortic Jxn: 3.0 cm LA vol: 59.1 ml : 40.8 ml asc Aorta Diam LA vol index RA : 20.5 mm2 Ao Arch Diam (Prox : 29.7 ml/m2 Trans): 3.1 cm LV corcoran. diameter/BSA LV sys. diameter/BSA RVD1 (basal) (cm/m^2): 2.7 (cm/m^2): 1.8 Doppler Measurements & Calculations Ao V2 max MV E max presley MV E/A: 0.83 PA V2 max : 112.6 cm/sec : 58.8 cm/sec Med Peak E' Presley : 71.1 cm/sec Ao max PG MV A max presley PA mean PG : 5.1 mmHg : 70.4 cm/sec E/E' med: 13.1 Ao mean PG MV P1/2t: 29.1 msec MV A dur: 0.09 sec PA Accel Time : 0.09 sec LVOT Max Presley : 84.7 cm/sec HARISH(I,D): 2.9 cm sev ratio MV dec time MV P1/2t max presley Ao V2 mean LV V1 max PG : 0.10 sec : 83.1 cm/sec MVA(P1/2t): 7.6 cm2 Ao V2 VTI: 20.3 cm LV V1 VTI HARISH(V,D): 3.2 cm2 : 14.1 cm PA V2 mean HARISH indexed to BSA : 54.3 cm/sec (cm^2/m^2): 1.5 Reading Physician:02:43 PM
--- NOTE | 2016-06-19 16:53 | NUR ---
spiritual care: pt request brief visit. pt described experiences with stroke, his weariness and sense of "wake up call" and renewed purpose of his life "I have kids, grandkids, lots to do" pt restorationism and was appreciative of prayer and follow up care.
[2016-06-19] MEDS: HYDROcodone-APAP 5-325 mg Tablet PO PRN (17:55)
--- NOTE | 2016-06-19 18:45 | DRSVH ---
PROCEDURE: MRI STROKE PROTOCOL ([id number]) Pre- and post-contrast brain MRI, non-contrast brain MR angiogram, pre- and postcontrast neck MR danielle ogram INDICATIONS: Right sided weakness TECHNIQUE: Brain: Noncontrast axial T1 spin echo, axial T2 fast spin echo, sagittal and axial FLAIR, coronal T2 fast spin echo, axial gradient echo, axial diffusion and ADC through the brain. After the administr ation of contrast, axial 3D VIBE of the cranial vasculature and brain. Brain MRA: Non-contrast 3-D time of flight MR angiogram, with multiple tnhdlnf-wlrxfrnuh-rlckhgaenz (MIP) reformats performed. Neck MRA: Axial and sagittal TruFISP through the neck. Coronal dynamic MR angiogram during administ ration of contrast in the arterial and venous phases, with 3-dimenstional xnsbtge-oxkikccmt-qosvaavaj n (MIP) reformats constructed from subtraction images. COMPARISON: [facility], CT, CT BRAIN WO CON, 06/18/2016, 18:45. [facility], CT, CT ANGIO BRAIN AND NECK, 06/18/2016, 20:01. FINDINGS: Image quality: Excellent. BRAIN: CSF spaces: Ventricles are normal in size and shape. Basal cisterns are patent. No extra-axial flu id collections. Brain: No intracranial bleeds or mass effects. Mild diffuse cerebral volume loss. Mild degree of pa tchy high FLAIR signal within the periventricular and subcortical white matter. Moreno-white matter int erface is normal. Diffusion weighted images demonstrate a 10 mm diameter region of elevated signal i ntensity within the left thalamus, as well as a 25 mm diameter region of elevated signal intensity wi thin the medial left temporal lobe. These lesions demonstrate low ADC map signal, and moderate FLAIR signal elevation, consistent with subacute infarcts. Brainstem appears normal. Normal intravascular flow voids are present. No abnormal intracranial enhancement. Skull and face: Calvarial marrow signal is normal. Orbits appear normal. Sinuses: Left maxillary sinus retention cyst. Sinuses and mastoids are otherwise clear. BRAIN MR ANGIOGRAM: Anterior circulation: Intracranial internal carotid arteries are normal in size and enhancement. Th e flow within the paired anterior cerebral arteries is normal and symmetric. The flow within the mid dle cerebral arteries is normal and symmetric. The anterior communicating artery is seen. No stenos es, occlusions, or aneurysms. Posterior circulation: The visualized portions of the vertebral arteries demonstrate normal caliber, and join to form a normal appearing basilar artery. Near origins of the bilateral posterior c erebral arteries. The flow within the posterior cerebral arteries is normal and symmetric. No stenos es, occlusions, or aneurysms. NECK MR ANGIOGRAM: Carotids: The origins of the common carotid arteries appear patent. The calibers and courses of bot h common carotid arteries are normal. The bifurcation regions appear normal bilaterally. The corporate intern al carotid arteries demonstrate normal course and caliber. Posterior circulation: Right vertebral artery is patent. Left vertebral artery appears to arise direc tly from the thoracic aortic arch, and is not well-seen proximally, but is otherwise patent. More sup erior portions of both vertebral arteries demonstrate normal course and caliber, and join to form a n ormal appearing basilar artery. Miscellaneous: Subclavian arteries appear patent. Pre-contrast images through the neck show no soft tissue abnormalities. IMPRESSION: BRAIN MRI: 1. Subacute left thalamic and medial temporal lobe infarcts. 2. Mild volume loss and small vessel ischemic disease. BRAIN MR ANGIOGRAM: Negative cerebral MR angiography. NECK MR ANGIOGRAM: 1. No internal carotid artery stenosis bilaterally. 2. Patent right vertebral artery. Suboptimally visualized left proximal vertebral artery, which appea rs to arise directly from the thoracic aortic arch. Left vertebral artery is otherwise patent. The estimate of stenosis included in the report of the imaging study was calculated using the NASCET method Dictated by: Joseph Pulido M.D. on 06/19/2016 at 18:43 Approved by: Joseph Pulido M.D. on 06/19/2016 at 18:43
[2016-06-20] VITALS (8 sets, daily range): BP systolic 133–176; BP diastolic 78–105; PULSE 71–84; RESP 18–20; O2SAT 93–98
[2016-06-20] MEDS: Heparin 5,000 Unit/mL Inj SUBQ SCH ×3 (01:27→16:14)
[2016-06-20] MEDS: 0.9% Sodium Chloride 1,000 ML IV SCH ×3 (01:58→16:19)
--- NOTE | 2016-06-20 08:28 | PCM.PNMED ---
Subjective Date of Service Jun 20, 2016 Subjective No overnight events. MRI came back positive for Lacuna and medial temporal stroke. Today, patient complaints of vision changes. Right side blurry compare to the left. Patient has this before and is associated with severe headache thereafter. Headaches happens over days. Separately, patient continues to have Right shoulder pain with abduction. He also has drenching sweats. Exam Vital Signs Vital Sign - Last Date Time Temp Pulse Resp B/P Pulse Ox O2 Delivery O2 Flow Rate FiO2 06/20/16 04:54 36.7 71 18 143/101 98 Room Air Intake and Output 06/19/16 06/19/16 06/20/16 Cumulative From/Thru 15:00 23:00 07:00 06/18/16 21:06 - 06/20/16 06:12 Intake Total 489 ml 855 ml 3341 ml Output Total 850 ml 1750 ml Balance 489 ml 5 ml 1591 ml Intake Oral 236 ml 236 ml IV Total 489 ml 619 ml 3105 ml Output Urine Total 850 ml 1750 ml Exam Gen: No acute distress, well-developed, well-nourished, appropriately interactive HEENT: Normocephalic, atraumatic. External ears without defect. Pupils equal, round, and reactive to light and accommodation. Anicteric sclerae, moist conjunctivae, and no lid lag. Oropharynx free of erythema and cobble stoning with moist mucosa. Neck: supple, no JVD Cardio: Regular rate and rhythm with no murmurs, rubs, or gallops appreciated Pulm: b/l air sound, no crackles, wheezes, or rhonchi. Normal respiratory effort with no use of accessory muscles. Abd: positive bowel tone. Soft, nontender, nondistended. Extremities: No clubbing, cyanosis, edema, or lymphadenopathy appreciated. Shoulder without swelling, erythema, mildly restricted upon abduction. Skin: Normal temperature, turgor, and texture; no rash, ulcers, or subcutaneous nodules appreciated. Neuro: Cranial nerves grossly intact. Normal muscle strength, tone, and bulk. Abnormal Right finger to nose test, Heal to lassiter test normal. Right Hemianopsia Psyc: Normal mood and affect. Alert and oriented to person, place, and time. IVs and Medications Medications Reviewed: Medications were reviewed in detail Lab and Diagnostics Result Diagram: 06/19/1662406/20/16 06 X-Rays, CTs and MRIs PROCEDURE: MRI STROKE PROTOCOL Pre- and post-contrast brain MRI, non-contrast brain MR angiogram, pre- and postcontrast neck MR angiogram INDICATIONS: Right sided weakness IMPRESSION: BRAIN MRI: 1. Subacute left thalamic and medial temporal lobe infarcts. 2. Mild volume loss and small vessel ischemic disease. BRAIN MR ANGIOGRAM: Negative cerebral MR angiography. NECK MR ANGIOGRAM: 1. No internal carotid artery stenosis bilaterally. 2. Patent right vertebral artery. Suboptimally visualized left proximal vertebral artery, which appears to arise directly from the thoracic aortic arch. Left vertebral artery is otherwise patent. The estimate of stenosis included in the report of the imaging study was calculated using the NASCET method Dictated by: Joseph Pulido M.D. on 06/19/2016 at 18:43 PROCEDURE: CT ANGIO HEAD AND NECK (P) INDICATIONS: stroke, severe headache IMPRESSION: 1. No high-grade stenosis or occlusion of the central intracranial arteries with evaluation of the distal branches limited due to motion artifact. 2. No definite acute intracranial abnormality. 3. No high-grade stenosis or occlusion of the head and neck arteries. Dictated by: Bryan Bedoya M.D. on 06/18/2016 at 20:50 PROCEDURE: CT BRAIN WITHOUT CONTRAST INDICATIONS: right sided weakness, dysarthria IMPRESSION: 1. No acute intracranial abnormality. 2. Moderate ethmoid sinus mucosal disease. PROCEDURE: X-RAY CHEST ONE VIEW FINDINGS: Surgical changes and devices: Postsurgical changes are again partially visualized in the lower cervical spine. Lungs and pleura: No pleural effusions or pneumothorax. Lungs are clear. Mediastinum: Mediastinal contours appear normal. Heart size is normal. Bones and chest wall: No suspicious bony lesions. A few old right healed rib fractures are again noted. Overlying soft tissues appear unremarkable. IMPRESSION: 1. No acute cardiopulmonary disease. 12-lead ECG Sinus rhythm rate [address] elevation in leads V2 and V3 No STEMI Per ED physician read 06/18/16 Cardiac Echo Impressions Echocardiogram Report Interpretation Summary 1) Normal left ventricular size and thickness with borderline reduced systolic function (EF 50-55%). 2) Mid anterolateral wall is hypokinetic. 3) No significant valvular abnormalities. 4) Injection of contrast documented no interatrial shunt. 5) Findings suggestive of ischemic heart disease. 6) No prior Echo available for comparison. Assessment & Plan A 60 year old male with a history of hypertension, degenerative joint disease, obstructive uropathy, peripheral neuropathy, GERD, alcohol abuse in remission, polysubstance abuse, and kidney carcinoma s/p nephrectomy who presents with stroke like symptoms since yesterday afternoon. Not a candidate for thrombolytic therapy. His symptoms are mostly resolved at current time of assessment, he is hemodynamically stable except high blood pressure. So far, initial imaging has been negative despite it being over 24 hours since symptom onset. #Stroke like symptoms, acute -MRI showed Left lacuna and medial temporal lobe embolic stroke -Permissive Hypertension hypertension for 24hrs -Dual antiplatelet therapy. Atorvastatin 40mg daily -youth nutritional monitor for any arrhythmias #Hemianopsia, not present on admission, active -He has greater risk for migraine headache -Visual change maybe prodromal. -Monitor. May need pharmacological abortive therapy. #Chronic Hypertension, POA -Continue patient's home meds -added metoprolol 25mg TID #Ischemic heart disease -Stress testing ordered. #Right shoulder pain, present on admission, stable -acetaminophen PRN -xray of shoulder #Chronic Lower Back Pain, POA -Patient is on disability due to this -Vicodin 5/325mg prn pain #Obstructive Uropathy, POA -Will defer to day team to re-start patient's Doxazosin #H/o Alcohol abuse, POA -Patient reports he has been sober for a couple of years now #H/o Polysubstance abuse, POA -Tox Screen pending. Likely is a risk factor for his CVA #Tobacco Dependence, POA -Counseling for cessation provided -Nicotine patch 14mg prn #Ethmoid Sinusitis, POA -As demonstrated on CT scan, patient not complaining of any sinus issues currently. -Encourage patient to seek outpatient management if problematic. Tylenol prn fever/pain Bowel Regimen prn constipation DVT prophylaxis Disposition: Possibly discharge tomorrow given labile blood pressure and cardiac workup. VTE Prophylaxis: Sub-Q Heparin (Unfractionated) Resuscitation Status: CPR: Attempt Resuscitation Time spent 30 minutes Attending Statement I have seen and directly evaluated patient at bedside in addition to directly supervising care provided by resident physician. I agree with above documentation. Yousuf Cisneros DO Jun 20, 2016 08:28 Adam Marie DO Jun 20, 2016 16:14
--- NOTE | 2016-06-20 08:51 | NUR ---
OT daily note completed
[2016-06-20] MEDS: HYDROcodone-APAP 5-325 mg Tablet PO PRN ×2 (11:15→18:38)
--- NOTE | 2016-06-20 11:33 | NUR ---
HTN Pt BP this AM 162/109. Pt has PRN IV hypertensive medications, parameters systolic >220, diastolic >120. paged re: BP and meds/parameters. will review.
[2016-06-20] MEDS ORDERED: hydrALAZINE 20 mg/mL Inj IV PRN (13:30)
--- NOTE | 2016-06-20 16:47 | DRSVH ---
PROCEDURE: X-RAY RIGHT SHOULDER, MINIMUM TWO VIEWS ([id number]) INDICATIONS: fall 2nd to stroke TECHNIQUE: 3 views of the shoulder were acquired. COMPARISON: None. FINDINGS: Bones: No fractures or dislocations. No suspicious bony lesions. Visualized ribs appear intact. M ild joint narrowing with periarticular osteophyte formation of the acromioclavicular and glenohumeral joints. Superior migration of the humeral head. Fixation hardware within the lower cervical spine incompletely visualized. Soft tissues: No suspicious soft tissue calcifications. IMPRESSION: No displaced fracture seen. If there is continued pain, followup exam or additional imaging such as MRI or CT could be performed for further assessment. Joint degeneration. Superior migration of the humeral head consistent with rotator cuff pathology and/or muscle atrophy. If indicated MRI could be performed to further evaluate the soft tissues. Dictated by: Kareem MCCARTHY Interpreted: Keiko Howard MD on 06/20/2016 at 16:47 Transcribed by: STAR on 06/20/2016 at 16:47 Approved by: Keiko Howard M.D. on 06/20/2016 at 17:40
--- NOTE | 2016-06-20 18:40 | NUR ---
Activity/STOREY/stress test Pt SBA with activity, reminded frequently to call for assist OOB. S.O at bedside, also aware that pt needs a staff member to assist getting up. Pt c/o STOREY earlier this shift, PRN analgesic effective. Pt c/o another STOREY at 1830, PRN analgesic given. Stress test rescheduled for AM due to pt receiving coffee and drinking it. Pt educated that he will be NPO after MN and no caffeine, he reports understanding. Board and door updated, will be passed along in report. Call light in reach, bed in lowest, locked position.
--- NOTE | 2016-06-20 22:49 | NUR ---
Stress test/BP Patient eating chocolate cake and Pepsi at bedside. Stress test scheduled for tomorrow AM. Reenforced to patient that he can not have any caffeine for 24 hours for stress test. Patient also scheduled to take PO Metoprolol. MD notified of caffeine non-compliance and beta brianna. Beta brianna held MD switched med to Amlodipine 5mg for tonight. Patient repeated that he will not have any caffeine and he will not have anything by mouth after midnight tonight. will continue to monitor
[2016-06-21] VITALS (8 sets, daily range): BP systolic 146–164; BP diastolic 78–92; PULSE 63–74; RESP 17–20; O2SAT 94–98
[2016-06-21] MEDS: Heparin 5,000 Unit/mL Inj SUBQ SCH ×3 (00:37→16:36)
[2016-06-21] MEDS: 0.9% Sodium Chloride 1,000 ML IV SCH ×2 (04:43→22:08)
[2016-06-21] MEDS: HYDROcodone-APAP 5-325 mg Tablet PO PRN (04:51)
--- NOTE | 2016-06-21 06:57 | PCM.PNMED ---
Subjective Date of Service Jun 21, 2016 Subjective No stress testing yesterday as patient had a coffee. Patient denies any new complaints today. No neurologic changes. Patient continues to have unchanged right sided visual field defects. Patient was intended to be discharged today. However, was unsteady on feet by PT , and recommend inpatient rehab. Exam Vital Signs Vital Sign - Last Date Time Temp Pulse Resp B/P Pulse Ox O2 Delivery O2 Flow Rate FiO2 06/21/16 05:59 74 06/21/16 04:42 36.7 18 150/89 96 Room Air Intake and Output 06/20/16 06/20/16 06/21/16 Cumulative From/Thru 15:00 23:00 07:00 06/18/16 21:06 - 06/21/16 06:17 Intake Total 1915 ml 250 ml 5506 ml Output Total 1350 ml 3100 ml Balance 565 ml 250 ml 2406 ml Intake Oral 1144 ml 250 ml 1630 ml IV Total 771 ml 3876 ml Output Urine Total 1350 ml 3100 ml # Voids 3 3 6 # Bowel Movements 0 0 Exam Gen: No acute distress, well-developed, well-nourished, appropriately interactive HEENT: Normocephalic, atraumatic. External ears without defect. Pupils equal, round, and reactive to light and accommodation. Anicteric sclerae, moist conjunctivae, and no lid lag. Oropharynx free of erythema and cobble stoning with moist mucosa. Neck: supple, no JVD Cardio: Regular rate and rhythm with no murmurs, rubs, or gallops appreciated Pulm: b/l air sound, no crackles, wheezes, or rhonchi. Normal respiratory effort with no use of accessory muscles. Abd: positive bowel tone. Soft, nontender, nondistended. Extremities: No clubbing, cyanosis, edema, or lymphadenopathy appreciated. Shoulder without swelling, erythema, mildly restricted upon abduction. Skin: Normal temperature, turgor, and texture; no rash, ulcers, or subcutaneous nodules appreciated. Neuro: Cranial nerves grossly intact. Normal muscle strength, tone, and bulk. Abnormal Right finger to nose test, Heal to lassiter test normal. Right homonymous hemianopia "right visual field blurry" per patient. Psyc: Normal mood and affect. Alert and oriented to person, place, and time. Lab and Diagnostics Result Diagram: 06/19/16 0625 06/20/16 0612 X-Rays, CTs and MRIs PROCEDURE: MRI STROKE PROTOCOL Pre- and post-contrast brain MRI, non-contrast brain MR angiogram, pre- and postcontrast neck MR angiogram INDICATIONS: Right sided weakness IMPRESSION: BRAIN MRI: 1. Subacute left thalamic and medial temporal lobe infarcts. 2. Mild volume loss and small vessel ischemic disease. BRAIN MR ANGIOGRAM: Negative cerebral MR angiography. NECK MR ANGIOGRAM: 1. No internal carotid artery stenosis bilaterally. 2. Patent right vertebral artery. Suboptimally visualized left proximal vertebral artery, which appears to arise directly from the thoracic aortic arch. Left vertebral artery is otherwise patent. The estimate of stenosis included in the report of the imaging study was calculated using the NASCET method Dictated by: Joseph Pulido M.D. on 06/19/2016 at 18:43 PROCEDURE: CT ANGIO HEAD AND NECK (P) INDICATIONS: stroke, severe headache IMPRESSION: 1. No high-grade stenosis or occlusion of the central intracranial arteries with evaluation of the distal branches limited due to motion artifact. 2. No definite acute intracranial abnormality. 3. No high-grade stenosis or occlusion of the head and neck arteries. Dictated by: Bryan Bedoya M.D. on 06/18/2016 at 20:50 PROCEDURE: CT BRAIN WITHOUT CONTRAST INDICATIONS: right sided weakness, dysarthria IMPRESSION: 1. No acute intracranial abnormality. 2. Moderate ethmoid sinus mucosal disease. PROCEDURE: X-RAY CHEST ONE VIEW FINDINGS: Surgical changes and devices: Postsurgical changes are again partially visualized in the lower cervical spine. Lungs and pleura: No pleural effusions or pneumothorax. Lungs are clear. Mediastinum: Mediastinal contours appear normal. Heart size is normal. Bones and chest wall: No suspicious bony lesions. A few old right healed rib fractures are again noted. Overlying soft tissues appear unremarkable. IMPRESSION: 1. No acute cardiopulmonary disease. 12-lead ECG Sinus rhythm rate [address] elevation in leads V2 and V3 No STEMI Per ED physician read 06/18/16 Cardiac Echo Impressions Echocardiogram Report Interpretation Summary 1) Normal left ventricular size and thickness with borderline reduced systolic function (EF 50-55%). 2) Mid anterolateral wall is hypokinetic. 3) No significant valvular abnormalities. 4) Injection of contrast documented no interatrial shunt. 5) Findings suggestive of ischemic heart disease. 6) No prior Echo available for comparison. Assessment & Plan A 60 year old male with a history of hypertension, degenerative joint disease, obstructive uropathy, peripheral neuropathy, GERD, alcohol abuse in remission, polysubstance abuse, and kidney carcinoma s/p nephrectomy who presents with stroke like symptoms since yesterday afternoon. Not a candidate for thrombolytic therapy. His symptoms are mostly resolved at current time of assessment, he is hemodynamically stable except high blood pressure. So far, initial imaging has been negative despite it being over 24 hours since symptom onset. #Stroke like symptoms, acute - Symptoms consistent with MRI showing Left lacuna and medial temporal lobe embolic stroke -Permissive Hypertension hypertension for 24hrs -Dual antiplatelet therapy. Atorvastatin 40mg daily -no arrhythmias noted on telemetry since admission. #Hemianopsia, not present on admission, active -He has greater risk for migraine headache -More likely resultant of stroke -Will need to monitor #Chronic Hypertension, POA -Continue patient's home meds -added metoprolol 25mg TID #Ischemic heart disease -Stress testing ordered. #Right shoulder pain, present on admission, stable -acetaminophen PRN -xray of shoulder #Chronic Lower Back Pain, POA -Patient is on disability due to this -Vicodin 5/325mg prn pain #Obstructive Uropathy, POA -Will defer to day team to re-start patient's Doxazosin #H/o Alcohol abuse, POA -Patient reports he has been sober for a couple of years now #H/o Polysubstance abuse, POA -Tox Screen pending. Likely is a risk factor for his CVA #Tobacco Dependence, POA -Counseling for cessation provided -Nicotine patch 14mg prn #Ethmoid Sinusitis, POA -As demonstrated on CT scan, patient not complaining of any sinus issues currently. -Encourage patient to seek outpatient management if problematic. Tylenol prn fever/pain Bowel Regimen prn constipation DVT prophylaxis Disposition: Anticipate discharge tomorrow to SNF. VTE Prophylaxis: Sub-Q Heparin (Unfractionated) Resuscitation Status: CPR: Attempt Resuscitation Time spent 30 minutes Attending Statement I have seen and evaluated patient at bedside in addition to directly supervising care provided by resident physician. I agree with above documentation. Yousuf Cisneros DO Jun 21, 2016 06:57 Adam Marie DO Jun 22, 2016 09:13
--- NOTE | 2016-06-21 07:37 | NUR ---
Off the unit Pt is off the unit for stress test. Addendum: 06/21/16 at 1842 by QUINN MAURO RN Pt returned to [facility], following completion of stress test appro 2.5 hours after leaving. NO complains of increased pain, Call light with in reach will continue to monitor.
--- NOTE | 2016-06-21 15:36 | DRSVH ---
PROCEDURE: VASODILATOR STRESS AND REST MYOCARDIAL PERFUSION IMAGING WITH GATING TO ASSESS EJECTION F RACTION AND REGIONAL WALL MOTION RADIOPHARMACEUTICAL: Stress: 25.8 mCi technetium-99m tetrofosmin. Rest: 7.8 mCi technetium-99m te trofosmin. INDICATIONS: THE PATIENT IS A 60-YEAR-OLD MALE ADMITTED WITH STROKE AND AN ECHOCARDIOGRAM THAT SUGGE STED POSSIBLE UNDERLYING CORONARY ARTERY DISEASE. COMPARISON: NM, DIOMEDES PERF SPECT MULTI (PNL), 12/24/2006, 10:13. PHARMACOLOGIC VASODILATOR STRESS: 0.4 mg of Lexiscan was infused per protocol with a normal hemodyn amic response. He developed some flushing, dyspnea and mild chest pressure. His resting ECG is norm al with an early repolarization pattern but there were no ischemic changes with stress. There were n o arrhythmias. He was given 100 mg of aminophylline with complete resolution of his symptoms. FINDINGS: Raw data: There is fair myocardial tracer uptake without any visual evidence for increased lung upta ke or post stress dilatation. Quantitative gated SPECT: Post stress left ventricular systolic function is estimated at 44% althoug h visually appears to be slightly higher than this with perhaps borderline reduced LV systolic functi on. There are no focal wall motion abnormalities identified. The resting ejection fraction is calcu lated at 50% but visually appears to be similar to the post stress images. LV end-diastolic volumes are normal at 119 mL. Myocardial perfusion imaging: Post stress supine images show a normal perfusion pattern without any perfusion defects, supported by normal perfusion imaging in the prone position. The resting images h ave an identical perfusion pattern without any areas of improvement. IMPRESSION: 1. Normal myocardial perfusion study. 2. No evidence for myocardial ischemia or previous myocardial infarction. 3. Borderline to mildly reduced LV systolic function in global fashion. 4. Vague chest pressure and dyspnea with Lexiscan infusion but no ECG evidence of ischemia. 5. Compared to the previous myocardial perfusion study of 12/24/2006, left ventricular systolic funct ion was previously estimated at 60% suggesting a possible modest decline. Perfusion imaging was also normal at that time and there has been no significant change beyond the slight reduction in LV systo lic function. Dictated by: Deepak Baugh M.D. on 06/21/2016 at 12:45 Transcribed by: LILO on 06/21/2016 at 18:36 Approved by: Deepak Baugh M.D. on 06/22/2016 at 17:31
--- NOTE | 2016-06-21 18:01 | NUR ---
Student Nurse Shift Note Pt requested IV be removed and removed the monitoring manager from himself. Dr. Cisneros agreed for both, IV and telemetry discontinued. IV was removed, intact from left arm.
[2016-06-22] MEDS: Heparin 5,000 Unit/mL Inj SUBQ SCH ×3 (00:55→16:30)
--- NOTE | 2016-06-22 02:23 | NUR ---
Tearful Patient tearful over condition. States that he is worried about being by himself after discharge. discussed with patient at length about d/c to rehab facility to get stronger. Patient does not like the fact that he can no longer do things independently. encouraged patient to call for help and do not ambulate by himself. significant other at bedside and states she feels comfortable helping him at this time. will continue to monitor.
[2016-06-22 04:41] VITALS: BP 143/96; PULSE 68; RESP 18; O2SAT 94
[2016-06-22] MEDS: HYDROcodone-APAP 5-325 mg Tablet PO PRN (04:45)
[2016-06-22] MEDS ORDERED: NICO1PAT5 TOPICAL (08:22)
[2016-06-22] MEDS ORDERED: CLOP75TA28 PO (08:22)
[2016-06-22] MEDS ORDERED: METO25TA99 PO (08:22)
[2016-06-22] MEDS ORDERED: ATOR40TA69 PO (08:22)
--- NOTE | 2016-06-22 08:30 | PCM.DIMED ---
Yousuf Cisneros DO 06/22/16 0830: Discharge Instructions Date of Service Jun 22, 2016 Dates of Hospitalization Jun 18, 2016 at 20:37 Discharge Diagnosis Discharge Diagnosis Embolic Stroke,present on admission, active Hemianopsia, not present on admission, active Chronic Hypertension, POA, stable Ischemic heart disease, stable Right shoulder pain, present on admission, stable Chronic Lower Back Pain, POA Obstructive Uropathy, POA H/o Alcohol abuse H/o Polysubstance abuse Tobacco Dependence, POA Ethmoid Sinusitis, POA Medication Instructions Must take Plavix 75mg daily Must take atorvastatin 40mg daily Must take lisinopril, metoprolol, and HCTZ as instructed. Your doctor may simply this regiment though. Please discuss with primary care provider Essential goal is to control your blood pressure below 130/80 Stop smoking. I have provided you with some nicotine patches to help. Weight lost will be sargent. Diet Heart Healthy Activity Other (SNF for rehab) Call your provider Chest pain, Weakness (unilateral) Patient Instructions Follow-up Provider: OTHER,PHYSICIAN Follow-up with PCP in: 1 week (Dr. Renee Agudelo) Adam Marie DO 06/24/16 0741: Discharge Instructions Attending's Statement Read and agree. Yousuf Cisneros DO Jun 22, 2016 08:30 Adam Marie DO Jun 24, 2016 07:41
[2016-06-22] MEDS: 0.9% Sodium Chloride 1,000 ML IV SCH (10:38)
[2016-06-22 12:49] VITALS: BP 125/82; PULSE 66; RESP 18; O2SAT 96
--- NOTE | 2016-06-22 15:23 | NUR ---
Social Work: Continued d/c planning Data: Pt is on day 4 of hospitalization. EMR reviewed. PT continued to recommend inpt rehab for pt. PANTS CLOSER spoke with UR specialist who states that pt's insurance package will not cover inpt rehab without support of more disciplines and that SNF will not be covered either. PANTS CLOSER met with pt to present the option of HH. Pt agreeable. SNF/HH choice list provided. Pt states no preference. Pt states he plans to stay in a hotel with his girlfriend at discharge but does not know the name of it. Pt states his girlfriend is picking up a phone for him today, but he does not yet know the phone number. Pt's girlfriends cell phone number is a [place] phone number she does not answer in [place]. PANTS CLOSER called [facility] to refer pt and asked if it was possible for pt to call [facility] to set up the initial appointment time and notify them of where to meet them. Anibal Rodriguez [phone], states that he will ask about what day pt should call and if this will work for their company per policy. PANTS CLOSER awaiting phone call from Anibal. PANTS CLOSER will continue to follow. Assessment: Pt who is independent at baseline. Plan: Pt will d/c to a hotel via POV with girlfriend, likely with [facility] which has been referred. PANTS CLOSER awaiting phone call from [facility] regarding pt and if they can work with him. PANTS CLOSER will continue to follow. TED Rodriguez
--- NOTE | 2016-06-22 15:59 | NUR ---
Social Work: Discharge Data: Pt is on day 4 of hospitalization. EMR reviewed. CUSTOMER SUPPORT ASSOCIATE spoke with Anibal with [facility] who states they need the physical address of the hotel and a phone number to call. Pt's girlfriend came the hospital and gave CUSTOMER SUPPORT ASSOCIATE pt's new phone number [phone]. Pt's girlfriend states they are going to [place] on [address]. CUSTOMER SUPPORT ASSOCIATE called Anibal back and gave him pt's phone number and physial address. Access given, F2F faxed to [facility]. No further d/c planning needs. CUSTOMER SUPPORT ASSOCIATE will continue to follow if needs arise. Assessment: Pt who is independent at baseline. Plan: Pt will d/c to [facility] with his girlfriend via POV with [facility] RN/PT/OT/CUSTOMER SUPPORT ASSOCIATE//SEJAL. No further d/c planning needs. CUSTOMER SUPPORT ASSOCIATE will continue to follow if needs arise. TED Rodriguez
--- NOTE | 2016-06-22 16:36 | NUR ---
Discharge Pt discharge home(hotel) with girlfriend via private vehicle. Pt verbalized understanding of discharge and Rx instructions, personal belongings accounted for and left with pt.
--- NOTE | 2016-06-23 21:28 | PCM.DC.MED ---
Discharge Summary Date of Service Jun 23, 2016 Dates of Hospitalization Date of Hospital Admission Jun 18, 2016 at 20:37 Date of Discharge: Jun 22, 2016 Providers: Admitting Physician: Pasha Kelly MD Primary Care Physician: Renee Agudelo MD Attending Physician: Pasha Kelly MD Diagnosis at Time of Discharge Diagnosis at Time of Discharge Embolic Stroke,present on admission, active Hemianopsia, not present on admission, active Chronic Hypertension, POA, stable Ischemic heart disease, stable Right shoulder pain, present on admission, stable Chronic Lower Back Pain, POA Obstructive Uropathy, POA H/o Alcohol abuse H/o Polysubstance abuse Tobacco Dependence, POA Ethmoid Sinusitis, POA Procedures XRay, CTs & MRIs PROCEDURE: X-RAY RIGHT SHOULDER, MINIMUM TWO VIEWS INDICATIONS: fall 2nd to stroke FINDINGS: Bones: No fractures or dislocations. No suspicious bony lesions. Visualized ribs appear intact. Mild joint narrowing with periarticular osteophyte formation of the acromioclavicular and glenohumeral joints. Superior migration of the humeral head. Fixation hardware within the lower cervical spine incompletely visualized. Soft tissues: No suspicious soft tissue calcifications. IMPRESSION: No displaced fracture seen. If there is continued pain, followup exam or additional imaging such as MRI or CT could be performed for further assessment. Joint degeneration. Superior migration of the humeral head consistent with rotator cuff pathology and/or muscle atrophy. If indicated MRI could be performed to further evaluate the soft tissues. Dictated by: Kareem Logan RR Interpreted: Keiko Howard MD on 06/20/2016 at 16: 47 PROCEDURE: MRI STROKE PROTOCOL Pre- and post-contrast brain MRI, non-contrast brain MR angiogram, pre- and postcontrast neck MR angiogram INDICATIONS: Right sided weakness IMPRESSION: BRAIN MRI: 1. Subacute left thalamic and medial temporal lobe infarcts. 2. Mild volume loss and small vessel ischemic disease. BRAIN MR ANGIOGRAM: Negative cerebral MR angiography. NECK MR ANGIOGRAM: 1. No internal carotid artery stenosis bilaterally. 2. Patent right vertebral artery. Suboptimally visualized left proximal vertebral artery, which appears to arise directly from the thoracic aortic arch. Left vertebral artery is otherwise patent. The estimate of stenosis included in the report of the imaging study was calculated using the NASCET method Dictated by: Joseph Pulido M.D. on 06/19/2016 at 18:43 PROCEDURE: CT ANGIO HEAD AND NECK (P) INDICATIONS: stroke, severe headache IMPRESSION: 1. No high-grade stenosis or occlusion of the central intracranial arteries with evaluation of the distal branches limited due to motion artifact. 2. No definite acute intracranial abnormality. 3. No high-grade stenosis or occlusion of the head and neck arteries. Dictated by: Bryan Bedoya M.D. on 06/18/2016 at 20:50 PROCEDURE: CT BRAIN WITHOUT CONTRAST INDICATIONS: right sided weakness, dysarthria IMPRESSION: 1. No acute intracranial abnormality. 2. Moderate ethmoid sinus mucosal disease. PROCEDURE: X-RAY CHEST ONE VIEW FINDINGS: Surgical changes and devices: Postsurgical changes are again partially visualized in the lower cervical spine. Lungs and pleura: No pleural effusions or pneumothorax. Lungs are clear. Mediastinum: Mediastinal contours appear normal. Heart size is normal. Bones and chest wall: No suspicious bony lesions. A few old right healed rib fractures are again noted. Overlying soft tissues appear unremarkable. IMPRESSION: 1. No acute cardiopulmonary disease. ECG 12 Lead Sinus rhythm rate [address] elevation in leads V2 and V3 No STEMI Per ED physician read 06/18/16 Cardiac Echo Impression Echocardiogram Report Interpretation Summary 1) Normal left ventricular size and thickness with borderline reduced systolic function (EF 50-55%). 2) Mid anterolateral wall is hypokinetic. 3) No significant valvular abnormalities. 4) Injection of contrast documented no interatrial shunt. 5) Findings suggestive of ischemic heart disease. 6) No prior Echo available for comparison. Brief History A 60 year old male with a history of hypertension, degenerative joint disease, obstructive uropathy, peripheral neuropathy, GERD, alcohol abuse in remission, polysubstance abuse, and kidney carcinoma s/p nephrectomy presents to the ED accompanied by his girlfriend for complaints of right sided numbness, weakness, and slurred speech that began yesterday afternoon. Patient reports prior to yesterday, he was at baseline and able to perform all his ADLs. He reports helping a friend move yesterday then suddenly developed these symptoms while he was at home. He was unable to get up for a couple of hours due to the weakness and he was not able to get help because his girlfriend was not home at the time. He reports his symptoms improved mildly over time, but reports he did have a horrible headache, blurred vision, nausea, and right sided pain. He denies any history of MIs or CVAs or bleeding disorders. He denies any incontinence or vision loss. He reports he has not had any new changes in his lifestyle; he continues to smoke a pack per day and reports he is compliant on his blood pressure medications. He reports he has been sober for a few years now and reports his last drug usage was 6 months ago. He has had a history of meth and heroine usage. In the ED, he was hypertensive in the 180s/120s. He received a dose of Aspirin and his initial CT brain was unremarkable besides some ethmoid mucosal thickening. His CBC and CMP were reassuring. His symptoms continue to improve and his NIHSS was a 5 for disorientation and mild facial asymmetry and loss of sensation. He also had a CT angio of brain and neck, but results were pending. PCP [facility] Pt is 60 year old male with a history of hypertension, degenerative joint disease, obstructive uropathy, peripheral neuropathy, GERD, alcohol abuse in remission, polysubstance abuse, and kidney carcinoma s/p nephrectomy who presents with stroke like symptoms 1 day prior. MRI shows 2 deep strokes. Echocardiogram showed mild wall motioned abnormalities. Though, cardiac stress remains unremarkable. Patient placed on plavix 75mg and atorvastatin daily prior to discharge. because his BP sustained in the 160/90's. we added metopolol 25mg daily to his home dosed lisinopril 10mg and HCTZ 25mg at discharge. #Stroke like symptoms, acute -MRI showing Left lacuna and medial temporal lobe embolic stroke with correlated neurologic findings. Mild coordination deficits of right hand and Right homonymous hemianopia "right visual field blurry". -Plavix 75mg daily and Atorvastatin 40mg daily -no arrhythmias noted on telemetry #Hemianopsia, not present on admission, active -He has greater risk for migraine headache -More likely resultant of stroke -Will need to monitor and be follow-up #Chronic Hypertension, POA -Continue patient's home meds -added metoprolol 25mg TID #Ischemic heart disease -Stress testing ordered. #Right shoulder pain, present on admission, stable -acetaminophen PRN -Shoulder xray demonstrate possible sprain. #Chronic Lower Back Pain, POA -Patient is on disability due to this -Vicodin 5/325mg prn pain #Obstructive Uropathy, POA - cont Doxazosin #H/o Alcohol abuse, POA -Patient reports he has been sober for a couple of years now #H/o Polysubstance abuse, POA -Tox Screen pending. Likely is a risk factor for his CVA #Tobacco Dependence, POA -Counseling for cessation provided -Nicotine patch 14mg prn #Ethmoid Sinusitis, POA -As demonstrated on CT scan, patient not complaining of any sinus issues currently. -Encourage patient to seek outpatient management if problematic. Exam Vital Signs (Last) Date Time Temp Pulse Resp B/P Pulse Ox O2 Delivery O2 Flow Rate FiO2 06/22/16 13:01 Room Air 06/22/16 12:49 36.6 66 18 125/82 96 Test 06/18/16 18:13 06/18/16 19:22 06/19/16 06:25 06/20/16 06:12 Prothrombin Time 10.0sec (8.1-12.5) Prothromb Time International Ratio 0.94ratio Hold Blue Top Tube Received (Received) Hemoglobin A1c 5.4% (4.8-5.6) Total Bilirubin 0.6mg/dL (0.0-1.2) Aspartate Amino Transf (AST/SGOT) 28U/L (0-50) Alanine Aminotransferase (ALT/SGPT) 27U/L (0-44) Alkaline Phosphatase 119U/L (25-150) Total Protein 7.3g/dL (6.4-8.4) Albumin 4.1g/dL (3.4-5.0) Hold Red Top Tube Received (Received) Hold [place] Top Tube Received (Received) Urine Color Yellow (YELLOW) Urine Appearance Clear (CLEAR,HAZY) Urine pH 5.5 (5.0-8.0) Urine Specific [place] 1.025 (1.003-1.035) Urine Protein Negativemg/dL (NEG,TRACE) Urine Glucose (UA) Negativemg/dL (NEGATIVE) Urine Ketones Negativemg/dL (NEGATIVE) Urine Occult Blood Small (NEGATIVE) Urine Nitrite Negative (NEGATIVE) Urine Bilirubin Negative (NEGATIVE) Urine Urobilinogen Normalmg/dL (NORMAL) Urine Leukocyte Esterase Negative (NEGATIVE) Urine RBC 0-2/hpf (0-2) Urine WBC 0-5/hpf (0-5) Urine Epithelial Cells None/hpf (NONE-MOD) Urine Crystals None seen (NONE SEEN) Urine Bacteria Few/hpf (NONE-FEW) Urine Hyaline Casts None/lpf (NONE) Urine Granular Casts None seen (NONE SEEN) Urine Waxy Casts None seen (NONE SEEN) Urine Red Blood Cell Casts None seen (NONE SEEN) Urine White Blood Cell Casts None seen (NONE SEEN) Urine Mucus Present (None Seen) Urine Trichomonas None seen (NONE SEEN) Urine Yeast None (NONE SEEN) Urinalysis Comment None Urine Culture Reflexed Not indicated Urine Opiates Screen Negative Urine Methadone Screen Negative Urine Barbiturates Screen Negative Urine Amphetamines Screen Negative Urine Benzodiazepines Screen Negative Urine Cocaine Metabolite Screen Negative Urine Cannabinoids Screen Negative White Blood Count 9.1th/mm3 (3.8-10.1) Red Blood Count 4.84mil/mm3 (4.40-5.80) Hemoglobin 14.7g/dL (13.8-17.2) Hematocrit 43.5% (41.0-50.0) Mean Corpuscular Volume 89.9fL (81-100) Mean Corpuscular Hemoglobin 30.4pg (27.0-35.0) Mean Corpuscular Hemoglobin Concent 33.8% (32.0-37.0) Red Cell Distribution Width 13.1% (12.3-15.4) Platelet Count 214bil/L (150-400) Neutrophils (%) (Auto) 54.8% (40-74) Lymphocytes (%) (Auto) 28.4% (14-46) Monocytes (%) (Auto) 12.0% (4-12) Eosinophils (%) (Auto) 3.5% (0-5) Basophils (%) (Auto) 0.9% (0-3) Triglycerides Level 343mg/dL (0-149) Cholesterol Level 248mg/dL (100-199) LDL Cholesterol, Calculated 133.400mg/dL (0-99) VLDL Cholesterol 68.600mg/dL HDL Cholesterol 46mg/dL (>39) Cholesterol/HDL Ratio 5.39 (0.0-4.4) Troponin T < 0.010ug/L (0.0-0.011) Test 1/18/17 10:50 06/21/16 07:00 Hold Purple Top Tube Received (Received) Hold [place] Top Tube Received (Received) Sodium Level 141mEq/L (134-144) Potassium Level 4.3mEq/L (3.5-5.2) Chloride Level 104mEq/L (97-108) Carbon Dioxide Level 26mmol/L (18-29) Blood Urea Nitrogen 18mg/dL (6-24) Creatinine 1.18mg/dL (0.76-1.27) Estimat Glomerular Filtration Rate 67mL/min (>59) Glucose Level 93mg/dL (60-99) Calcium Level 8.7mg/dL (8.5-10.1) Discharge Medications Discharge Medications Atorvastatin Calcium (Atorvastatin Calcium) 40 Mg Tablet 40 MG PO HS Prescribed by: ANGEL CISNEROS DO Clopidogrel (Clopidogrel) 75 Mg Tablet 75 MG PO DAILY Prescribed by: ANGEL CISNEROS DO Doxazosin Mesylate (Doxazosin Mesylate) 8 Mg Tablet 4 MG PO BID (Reported) Hydrochlorothiazide (Hydrochlorothiazide) 25 Mg Tablet 25 MG PO DAILY (Reported ) Lisinopril (Lisinopril) 5 Mg Tablet 10 MG PO DAILY (Reported) Metoprolol Succinate ER (Metoprolol Succinate ER) 25 Mg Tab.er.24h 25 MG PO DAILY Prescribed by: ANGEL CISNEROS DO As needed Nicotine 14 mg/24 hr Patch (Nicotine 14 mg/24 hr Patch) 1 Each Patch.td24 1 PATCH TOPICAL DAILY PRN PRN For Tobacco Withdrawal Prescribed by: ANGEL CISNEROS DO Additional med instructions Must take Plavix 75mg daily Must take atorvastatin 40mg daily Must take lisinopril, metoprolol, and HCTZ as instructed. Your doctor may simply this regiment though. Please discuss with primary care provider Essential goal is to control your blood pressure below 130/80 Stop smoking. I have provided you with some nicotine patches to help. Weight lost will be sargent. Followup Plan Discharge Diet: Heart Healthy Discharge Activity: Other (SNF for rehab) Follow-up Provider: OTHER,PHYSICIAN Follow-up with PCP in: 1 week (Dr. Renee Agudelo) Time spent 45 minutes Attending Statement I have seen and evaluated patient at bedside in addition to directly supervising care provided by resident physician. I agree with above documentation of discharge summary. Angel Cisneros DO Jun 23, 2016:28 Adam Marie DO Jun 24, 2016 07:42
== END 2016-06-22 16:39 | disposition home health service (06) | DRG 45 ==
LOC: SED 17:58 → MPC 20:37
PROVIDERS: ADMIT Hospitalist; ATTEND Hospitalist
DX: I63.9 Cerebral infarction, unspecified (principal); G81.91 Hemiplegia, unspecified affecting right dominant side; G62.9 Polyneuropathy, unspecified; N13.9 Obstructive and reflux uropathy, unspecified; H53.47 Heteronymous bilateral field defects; I10 Essential (primary) hypertension; M47.812 Spondylosis without myelopathy or radiculopathy, cervical region; M25.511 Pain in right shoulder; M47.816 Spondylosis without myelopathy or radiculopathy, lumbar region; J32.2 Chronic ethmoidal sinusitis; F17.200 Nicotine dependence, unspecified, uncomplicated; R40.2142 Coma scale, eyes open, spontaneous, at arrival to emergency department; R40.2362 Coma scale, best motor response, obeys commands, at arrival to emergency department; R40.2252 Coma scale, best verbal response, oriented, at arrival to emergency department; R47.1 Dysarthria and anarthria; Z90.89 Acquired absence of other organs; Z87.898 Personal history of other specified conditions

== ENCOUNTER 2016-06-27 10:44 | Emergency (ER) | payer MEDICAID, OTHER ==
[~2016-06-27 10:44] MED LIST changes: -AMLO10TA5 PO; -ATEN100T4 PO; +ATOR40TA69 PO; -CLON0.2T11 PO; +CLOP75TA28 PO; -DOXA1TAB PO; +DOXA8TAB73 PO; -HYDR1TAB69 PO; +LISI-571 PO; +METO25TA99 PO; +NICO1PAT5 TOPICAL
[2016-06-27 11:00] VITALS: BP 136/88; PULSE 79; RESP 16; O2SAT 100
--- NOTE | 2016-06-27 12:07 | ED.REPORT ---
HPI-Stroke / CVA Jun 27, 2016 ED Provider: Jacob Mcarthur MD A 60 year old male with a medical history including embolic stroke, hypertension , peripheral neuropathy, and degenerative joint disease presents to the ED via EMS accompanied by his girlfriend with dizziness onset just prior to arrival. Associated symptoms include nausea, hypotension (101/62), malaise, constipation , decreased appetite, and reduced urination. The patient denies vomiting or diarrhea. He was recently discharged from the hospital on 06/22/16 after a five stay for an embolic stroke. The patient had his first rehabilitation appointment today. His stroke has left lasting right-sided weakness and vision change. The patient's girlfriend expresses concerns about his ability to care for himself as he is currently homeless and staying in a motel. Nursing Notes Stated Complaint: DIZZY,WEAKNESS Chief Complaint: General Complaint Nursing Notes Reviewed: Yes Allergies: Coded Allergies: No Known Allergies (Unverified Allergy, Unknown, 06/18/16) Scheduled Atorvastatin Calcium (Atorvastatin Calcium) 40 Mg Tablet 40 MG PO HS Clopidogrel (Clopidogrel) 75 Mg Tablet 75 MG PO DAILY Doxazosin Mesylate (Doxazosin Mesylate) 8 Mg Tablet 4 MG PO BID (Reported) Hydrochlorothiazide (Hydrochlorothiazide) 25 Mg Tablet 25 MG PO DAILY (Reported ) Lisinopril (Lisinopril) 5 Mg Tablet 10 MG PO DAILY (Reported) Metoprolol Succinate ER (Metoprolol Succinate ER) 25 Mg Tab.er.24h 25 MG PO DAILY Scheduled PRN Nicotine 14 mg/24 hr Patch (Nicotine 14 mg/24 hr Patch) 1 Each Patch.td24 1 PATCH TOPICAL DAILY PRN PRN For Tobacco Withdrawal General Time Seen by Provider: 12:06 Chief Complaint Dizziness Hx Obtained From: Patient, Spouse (Girlfriend) Arrived By: Ambulance Time last known well Prior to last hospitalization Sudden in Onset?: No Symptom Duration: Intermittent (New symptoms began just prior to arrival) Progression Since Onset: Intermittent Severity: Current: No pain currently Severity: Maximum: No pain Associated with: Reports: Nausea, Denies: Vomiting Pertinent Negative: Relieved by nothing Context Related History: Reports: Cerebrovascular accident Context: Immunizations None up to date Recent Healthcare: Recent doctor visit Similar Sx Previous: Yes Risk Factors NIH Stroke Scale Level of Consciousness: Alert and responsive (0) Ask Month & Age: 1 question right (1) (Girlfriend reports not knowing date is baseline) Open/Close Eyes/Hand Blackjack Supervisor: Performs both tasks (0) Visual Adam: No visual loss (0) Facial Palsy: Normal symmetry (0) Right Arm Motor Drift (10s): No drift 10 sec (0) Left Arm Motor Drift (10s): No drift 10 sec (0) Right Leg Motor Drift (5s): No drift 5 sec (0) Left Leg Motor Drift (5s): No drift 5 sec (0) (Right upper extremity) Limb Ataxia FNF/Heel-Johnson: Ataxia in 1 limb (1) Language Aphasia: Loss fluency ID matls (1) Dysarthria: No dysarthria, normal (0) NIHSS Score: 3 Time NIHSS Performed: 12:17 Date NIHSS Performed: Jun 27, 2016 Past Medical History Past Medical History 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 Obstructive uropathy Peripheral Neuropathy GERD Clear cell carcinoma of right kidney Past Surgical History Cervical disks fused in 2 prior C-spine surgeries and has had 1 lumbar spine surgery, all in [facility] Nephrectomy Smoking History Former Smoker (Stopped 06/2016) Occupation Disabled due to back injuries Ambulatory Status Independent Review of Systems Review of Systems Note: + hypotension (101/62), decreased appetite Constitutional: Reports: Malaise, Denies: Fever GI: Reports: Constipation, Nausea, Denies: Diarrhea, Vomiting Neurologic: Reports: Dizziness Complete sys rev & neg: except as marked. Male: Reports Urination decreased Physical Exam Physical Exam Notes: Initial Vital Signs Vital Signs (First) Date Time Temp Pulse Resp B/P Pulse Ox O2 Delivery O2 Flow Rate FiO2 06/27/16 11:00 36.8 79 16 136/88 100 Room Air Initial VS: Reviewed ENT: Conjunctiva normal, No scleral icterus Skin: Warm, Dry Psychiatric: Mood/affect normal, Behavior normal, Normal thought content General/Constitutional: Awake, Alert Head / Eyes: Atraumatic, Normocephalic Neck: Supple, Full range of motion Respiratory / Chest: Breath sounds NL, Breath sounds = bilat, No respiratory distress Cardiovascular: Heart rate NL, Regular rhythm, Heart sounds NL Neurologic: Oriented X3 (At baseline), Speech NL Speech: Positive: Expressive aphasia (Mild) Cerebellar Dysfunction: Positive: Finger-nose abnl (Right arm) Lower Extremity / Pelvis / MS: Inspection NL, No edema Interpretation & Diagnostics Lab Results Interpretation Test 06/27/16 10:55 Hold Purple Top Tube Received (Received) Hold Blue Top Tube Received (Received) Hold Red Top Tube Received (Received) Hold [place] Top Tube Received (Received) CT Head Interpretation IMPRESSION: 1. Hypodensities involving the left temporal lobe and occipital lobe, as well as the left thalamus, consistent with subacute infarcts. The infarcted territory is significantly increased compared to the MRI dated 06/19/2016. 2. Bilateral ethmoid sinus disease Dictated by: Radha Henson M.D. on 06/27/2016 at 13:22 Study: Head CT no contrast Interpretation / Wet Read by: Interpret - Radiologist Re-Eval/Medical Decision Source of Hx: Old records Re-Evaluation/Progress : Time of Eval: 14:04 Patient Status: Condition improved Re-Evaluation/Progress Note: Discussed with patient CT and lab results, diagnosis, and plan for discharge. Follow-up and return to the ER instructions given. Patient agrees with plan for care and all questions were addressed. Counseled Regarding: Diagnosis, Lab results, Need for follow-up, When/why to return to ED Patient Discharge & Departure Impression: Primary Impression: Upper respiratory infection URI type: unspecified viral URI Qualified Code: J06.9 - Acute upper respiratory infection, unspecified Additional Impression: Stroke CVA mechanism: embolism Disposition: Home Discharge Condition All VS Reviewed: Yes Condition: Stable Additional Instructions: Thank you for entrusting us with your care. I do not suspect a dangerous infection or cause for your general malaise today. Take MiraLAX or similar laxatives daily for constipation. I am sorry that we cannot provide you further assistance for housing. I wish you look in her efforts to find adequate housing. Call your primary care provider tomorrow for a follow-up appointment. Return to the ER with any new or worsening symptoms. Referrals: Renee Agudelo MD (PCP) Parvizibe Attestation Portions of this note were transcribed by Anjana Shah. I, Dr. Mcarthur, personally performed the history, physical exam, and medical decision-making; I reviewed and confirmed the accuracy of the information in the transcribed note. Signed by: Radha Contreras, 06/27/2016, 15:04 copies to: Renee Agudelo MD, Kirk H MD Jun 27, 2016 12:07 ANJANA SHAH Jun 27, 2016 12:30
[2016-06-27] MEDS ORDERED: Ondansetron 2 mg/mL 2 mL Inj IVPUSH ONE (12:25)
[2016-06-27] MEDS ORDERED: 0.9% Sodium Chloride 1,000 ML IV ONE (12:25)
--- NOTE | 2016-06-27 13:34 | DRSVH ---
PROCEDURE: CT BRAIN WITHOUT CONTRAST ([id number]) INDICATIONS: 60-year-old man with presyncope. He has recent CVA. TECHNIQUE: Noncontrast 4.5 mm thick angled axial sections acquired from the foramen magnum to the vertex, with c oronal reformats. COMPARISON: [facility], MR, MR STROKE PROTOCOL, 06/19/2016, 17:07. [facility] l, CT, CT ANGIO BRAIN AND NECK, 06/18/2016, 20:01. [facility], CT, CT BRAIN WO CON, 2016, 18:45. FINDINGS: Image quality: Excellent. CSF spaces: Basal cisterns are patent. No extra-axial fluid collections. Ventricles are normal in size and shape. Brain: There are hypodensities involving the left temporal lobe and occipital lobe, as well as the l eft thalamus, consistent with sub-acute infarct. Compared to the last MRI on 06/19/2016, the infarcted territory is significantly increased (previously the left occipital lobe was not involved). No midli ne shift. No intracranial masses or hemorrhage. Moreno-white matter interface is normal. Skull and face: Calvarium and visualized facial bones are intact, without suspicious lesions. Sinuses: Bilateral ethmoid sinus mucosal thickening. The mastoids are clear. IMPRESSION: 1. Hypodensities involving the left temporal lobe and occipital lobe, as well as the left thalamus, c onsistent with subacute infarcts. The infarcted territory is significantly increased compared to the MRI dated 06/19/2016. 2. Bilateral ethmoid sinus disease Dictated by: Radha Henson M.D. on 06/27/2016 at 13:22 Approved by: Radha Henson M.D. on 06/27/2016 at 13:32
[2016-06-27 13:58] VITALS: BP 134/80; PULSE 73
[2016-06-27 14:00] VITALS: BP 136/87; PULSE 85
[2016-06-27 15:00] VITALS: BP 141/86; PULSE 81; RESP 16; O2SAT 100
== END 2016-06-27 15:01 | disposition home or self-care (01) ==
LOC: SED 10:44 → EDBD 10:44 → SED 15:01
DX: J06.9 Acute upper respiratory infection, unspecified (principal); I69.953 Hemiplegia and hemiparesis following unspecified cerebrovascular disease affecting right non-dominant side; I69.398 Other sequelae of cerebral infarction; H53.9 Unspecified visual disturbance; I74.9 Embolism and thrombosis of unspecified artery; R11.0 Nausea; I95.9 Hypotension, unspecified; K59.00 Constipation, unspecified; F50.89 Other specified eating disorder; I10 Essential (primary) hypertension; K21.9 Gastro-esophageal reflux disease without esophagitis; Z87.891 Personal history of nicotine dependence; Z59.0 Homelessness
CPT/HCPCS: 70450; 96360; 99284; J7030

== ENCOUNTER 2016-07-09 20:18 | Emergency (ER) | payer OTHER ==
[~2016-07-09] VITALS: Ht 177.8 cm; Wt 84.1 kg
[2016-07-09 20:16] VITALS: BP 190/110; PULSE 68; RESP 16; O2SAT 97
--- NOTE | 2016-07-09 20:49 | ED.REPORT ---
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 Pt has a history of migraines and states that this feels similar. Pt is worried because he had a headache with his previous stroke. He states that this does not feel like a stroke. He denies any new neurological deficits. Nursing Notes Stated Complaint: HEADACHE Chief Complaint: Headache Nursing Notes Reviewed: Yes Allergies: Coded Allergies: No Known Allergies (Unverified Allergy, Unknown, 07/09/16) Scheduled Atorvastatin Calcium (Atorvastatin Calcium) 40 Mg Tablet 40 MG PO HS Clopidogrel (Clopidogrel) 75 Mg Tablet 75 MG PO DAILY Doxazosin Mesylate (Doxazosin Mesylate) 8 Mg Tablet 4 MG PO BID Hydrochlorothiazide (Hydrochlorothiazide) 25 Mg Tablet 25 MG PO DAILY Lisinopril (Lisinopril) 5 Mg Tablet 10 MG PO DAILY Metoprolol Succinate ER (Metoprolol Succinate ER) 25 Mg Tab.er.24h 25 MG PO DAILY Scheduled PRN Nicotine 14 mg/24 hr Patch (Nicotine 14 mg/24 hr Patch) 1 Each Patch.td24 1 PATCH TOPICAL DAILY PRN PRN For Tobacco Withdrawal General Time Seen by MD: 20:48 Chief Complaint Headache Hx Obtained From: Patient, EMS Arrived By: Ambulance Sudden in Onset?: No Onset Occurred: 5 - 8 hours ago Symptom Duration: Since onset Location: : Generalized Quality: Painful Severity: Current: Moderate Associated with: Denies: Confusion, Difficulty speaking, Numbness, Vomiting, Weakness Pertinent Negative: Relieved by nothing Recent Healthcare: Recent hospitalization Similar Sx Previous: Yes Risk-Headache )( SAH Risk Stratification RF Statements: Risk factors reviewed )( IC Mass Risk Stratification RF Statements: Risk factors reviewed Past Medical History Past Medical History 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 Obstructive uropathy Peripheral Neuropathy GERD Clear cell carcinoma of right kidney Past Surgical History Cervical disks fused in 2 prior C-spine surgeries and has had 1 lumbar spine surgery, all in [facility] Nephrectomy Smoking History Former Smoker Occupation Disabled due to back injuries Ambulatory Status Independent Review of Systems Basic Review of Systems Respiratory: No shortness of breath, No cough, No wheeze Cardiovascular: No chest pain, No dyspnea on exertion, No orthopnea, No parox noct dyspnea, No palpitations Constitutional: Denies: Fever Neurologic: Reports: Headache, Denies: Confusion, Focal weakness, Numbness, Vision change Complete sys rev & neg: except as marked. Physical Exam Initial Vital Signs Vital Signs (First) Date Time Temp Pulse Resp B/P Pulse Ox O2 Delivery O2 Flow Rate FiO2 07/09/16 20:16 36.7 68 16 190/110 97 Room Air Initial VS: Reviewed ENT: Mucous membranes moist, Conjunctiva normal, No scleral icterus Respiratory: Breath sounds normal, Clear to auscultation, No respiratory distress Cardiovascular: Regular rate & rhythm, Heart sounds normal, Intact distal pulses Abdomen / GI: Soft, Non-tender, No guarding, No rebound, No distention Extremities: Vascular intact, Neuro intact, No swelling, No tenderness Skin: Warm, Dry, No cyanosis Psychiatric: Mood/affect normal, Behavior normal, Normal thought content General/Constitutional: Awake, Alert, Cooperative Head / Eyes: Atraumatic, Normocephalic, PERRL, EOMI Neck: Supple, Full range of motion Neurologic: Oriented X3, Speech NL, No motor deficits (no overt weakness identified), CN II - XII intact Re-Eval/Medical Decision Re-Evaluation/Progress : Time of Eval: 22:41 Re-Evaluation/Progress Note: Headache has improved. Discussed plan for discharge and follow up. All questions addressed. Counseled Regarding: Diagnosis, Lab results, Need for follow-up, When/why to return to ED Discharge & Departure Impression: Primary Impression: Migraine Migraine type: unspecified Status migrainosus presence: without status migrainosus Intractability: not intractable Qualified Code: G43.909 - Migraine, unspecified, not intractable, without status migrainosus Disposition: Home Discharge Condition All VS Reviewed: Yes Condition: Improved Patient Instructions: Migraine Headache (ED) Additional Instructions: Your workup today was reassuring. I do not believe that you are experiencing another stroke. Your symptoms seem most consistent with migraine. Referrals: Renee Agudelo MD (PCP) Scribe Attestation Portions of this note were transcribed by Brittaney Mondragon. I, (Dr. Jacob Mcarthur) personally performed the history, physical exam and medical decision-making; I reviewed and confirmed the accuracy of the information in the transcribed note. Signed by: Brittaney Mondragon. Radha, 07/09/2016, 1355 copies to: Renee Agudelo MD, Kirk H MD Jul 09, 2016 20:49 Brittaney Mondragon Jul 09, 2016 21:59
[2016-07-09] MEDS ORDERED: 0.9% Sodium Chloride 1,000 ML IV ONE (21:52)
[2016-07-09] MEDS ORDERED: Dexamethasone 10 mg/mL Inj IVPUSH ONE (21:55)
[2016-07-09] MEDS ORDERED: MetoCLOpramide 5 mg/mL 2 mL Inj IVPUSH ONE (21:55)
[2016-07-09 22:07] VITALS: BP 165/106; PULSE 69; O2SAT 97
[2016-07-09 23:03] VITALS: BP 165/106; PULSE 69; RESP 16; O2SAT 97
== END 2016-07-09 22:55 | disposition home or self-care (01) ==
LOC: SED 20:18
DX: G43.909 Migraine, unspecified, not intractable, without status migrainosus (principal); I69.998 Other sequelae following unspecified cerebrovascular disease; R53.1 Weakness; H53.9 Unspecified visual disturbance; K21.9 Gastro-esophageal reflux disease without esophagitis; Z87.891 Personal history of nicotine dependence
CPT/HCPCS: 96361; 96374; 96375; 99284; J1100; J1200; J2765; J7030

== ENCOUNTER 2016-09-13 19:25 | Emergency (ER) | payer OTHER ==
[~2016-09-13] VITALS: Ht 177.8 cm; Wt 81.8 kg
[2016-09-13 19:28] VITALS: BP 202/120; PULSE 89; RESP 20; O2SAT 99
--- NOTE | 2016-09-13 20:06 | ED.REPORT ---
HPI-General Illness Date of Service Sep 13, 2016 ED Provider: Dr. Job Salvador Christophe is a very pleasant 52-year-old male who presents complaining of uncontrolled high blood pressure. He states his blood pressures have been poorly controlled for the past 4-6 weeks. He states that when his blood pressure is high he will feel a fullness throughout his head and face and he will feel flushed. His blood pressures been high for several days and in fact for several weeks. He has been compliant with his medications. I took care of him a few months ago when he had a stroke. He has been in a rehabilitation facility since then. He has been placed on several medications which she has been compliant with. His blood pressure however for the last 4 weeks has been very difficult to control. He does not have a headache. He has a burning sensation in the skin of his face. This is usually what happens when he has high blood pressure. He does not have any anginal or chest pain type symptoms. No ripping or tearing pain of noticed stroke symptoms have improved dramatically. No new or worsening neurologic deficits. Nursing Notes Stated Complaint: HIGH BLOOD PRESSURE Chief Complaint: General Complaint Nursing Notes Reviewed: Yes Allergies: Coded Allergies: No Known Allergies (Unverified Allergy, Unknown, 07/09/16) Scheduled Atorvastatin Calcium (Atorvastatin Calcium) 40 Mg Tablet 40 MG PO HS Clopidogrel (Clopidogrel) 75 Mg Tablet 75 MG PO DAILY Doxazosin Mesylate (Doxazosin Mesylate) 8 Mg Tablet 4 MG PO BID Hydrochlorothiazide (Hydrochlorothiazide) 25 Mg Tablet 25 MG PO DAILY Lisinopril (Lisinopril) 5 Mg Tablet 10 MG PO DAILY Metoprolol Succinate ER (Metoprolol Succinate ER) 25 Mg Tab.er.24h 25 MG PO DAILY Scheduled PRN Nicotine 14 mg/24 hr Patch (Nicotine 14 mg/24 hr Patch) 1 Each Patch.td24 1 PATCH TOPICAL DAILY PRN PRN For Tobacco Withdrawal General Time Seen by MD: 20:06 Transferred From: [facility] Chief Complaint Other (High blood pressure) Hx Obtained From: Patient, Spouse Arrived By: Walk-in Sudden in Onset?: No Onset Occurred: 1 - 4 hours ago Symptom Duration: Since onset Location: : Chest: Face Severity: Current: Moderate Severity: Maximum: Moderate Recent Healthcare: No recent doctor visit Similar Sx Previous: No Past Medical History Past Medical History Notes: Dr. Agudelo is PCP. 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 Obstructive uropathy Peripheral Neuropathy GERD Clear cell carcinoma of right kidney Past Surgical History Cervical disks fused in 2 prior C-spine surgeries and has had 1 lumbar spine surgery, all in [facility] Nephrectomy Smoking History Former Smoker Social History Currently resides at a pen[facility]iary home in [place]. Plans to stay there until he has had adequate recovery from his stroke. Occupation Disabled due to back injuries Ambulatory Status Independent Review of Systems High blood pressure. Burning sensation in face. Full Review of Systems Constitutional: Denies: Chills, Fever Respiratory: Denies: Non-productive cough Cardiovascular: Reports: Chest pain (burning) Complete sys rev & neg: except as marked. Physical Exam Vital Signs Vital Signs Date Time Temp Pulse Resp B/P Pulse Ox O2 Delivery O2 Flow Rate FiO2 09/14/16 01:24 81 18 116/88 95 Room Air 09/13/16 23:19 90 16 102/73 95 Room Air 09/13/16 22:23 84 121/90 09/13/16 22:11 87 18 134/96 95 Room Air 09/13/16 21:26 88 16 147/98 96 Room Air 09/13/16 20:45 84 17 150/104 96 Room Air 09/13/16 19:28 36.4 89 20 202/120 99 Room Air Initial VS: Reviewed General/Constitutional: Awake, Alert Head / Eyes: Atraumatic, Normocephalic Loss of vision in right lateral visual field. ENT: Atraumatic, Airway patent Respiratory / Chest: Atraumatic, Breath sounds NL, Breath sounds = bilat, No respiratory distress, No rales, No rhonchi, No wheezing Cardiovascular: Heart rate NL, Regular rhythm, Heart sounds NL High blood pressure. Symmetric pulses. Abdomen: Soft, Non-tender Skin: Atraumatic, Warm, Dry Neurologic: Oriented X3, Speech NL (speech is rapid and artiulate) Interpretation & Diagnostics Lab Results Interpretation Result Diagram: 09/13/16 2100 09/13/16 2100 Test 09/13/16 21:00 09/13/16 23:55 White Blood Count 8.7th/mm3 (3.8-10.1) Red Blood Count 4.31mil/mm3 (4.40-5.80) Hemoglobin 13.1g/dL (13.8-17.2) Hematocrit 38.8% (41.0-50.0) Mean Corpuscular Volume 90.0fL (81-100) Mean Corpuscular Hemoglobin 30.4pg (27.0-35.0) Mean Corpuscular Hemoglobin Concent 33.8% (32.0-37.0) Red Cell Distribution Width 12.3% (12.3-15.4) Platelet Count 209bil/L (150-400) Neutrophils (%) (Auto) 54.4% (40-74) Lymphocytes (%) (Auto) 27.7% (14-46) Monocytes (%) (Auto) 12.9% (4-12) Eosinophils (%) (Auto) 4.0% (0-5) Basophils (%) (Auto) 0.7% (0-3) Sodium Level 139mEq/L (134-144) Potassium Level 3.7mEq/L (3.5-5.2) Chloride Level 102mEq/L (97-108) Carbon Dioxide Level 24mmol/L (18-29) Blood Urea Nitrogen 30mg/dL (6-24) Creatinine 1.62mg/dL (0.76-1.27) Estimat Glomerular Filtration Rate 47mL/min (>59) Glucose Level 99mg/dL (60-99) Calcium Level 9.5mg/dL (8.5-10.1) Magnesium Level 2.1mg/dL (1.6-2.6) Total Bilirubin 0.6mg/dL (0.0-1.2) Aspartate Amino Transf (AST/SGOT) 19U/L (0-50) Alanine Aminotransferase (ALT/SGPT) 19U/L (0-44) Alkaline Phosphatase 83U/L (25-150) Pro-B-Type Natriuretic Peptide 37.94pg/mL (0-210) Total Protein 6.6g/dL (6.4-8.4) Albumin 4.1g/dL (3.4-5.0) Troponin T < 0.010ug/L (0.0-0.011) ECG Interpretation ECG Interpretation: Rate is 88. Sinus rhythm with LVH. Time: 20:13 Interpreted by: ED physician Re-Eval/Medical Decision Med Decision/Clinical Course Art did great. a combination of labetalol and topical nitrates brought his blood pressure 110/70. This might be a bit low for him. Either way he tells me that he feels better than he has in 4-6 weeks.. His blood pressure seemed to be stable. He did not wish to be admitted to the hospital. He would like something for blood pressure control. For now I will place him on as needed clonidine. He will take a pill every 8 hours for systolic greater than 150. He is also to call his doctor tomorrow because they may want to do something different. I think for the short-term clonidine should be a good choice for him. He takes a low-dose beta brianna so I do not think the bradycardia is going to be an issue.. No signs of an AK. At discharge he was at his neurologic baseline. He is going to go back to the rehabilitation facility and he has a follow-up tomorrow with [facility]. I agree with all of this. Source of Hx: Old records Counseled Regarding: Diagnosis, Lab results, Need for follow-up, When/why to return to ED Discharge & Departure Shift Change Sign-Out Response to Therapy: Improved Primary Impression: Hypertension Hypertension type: essential hypertension Qualified Code: I10 - Essential ( primary) hypertension Disposition: Home Patient Instructions: Chronic Hypertension (ED) Additional Instructions: Stay on all of your medications. Call your doctor tomorrow for follow-up. If your blood pressure is persistently greater than 150 systolic, take 1 clonidine every 8 hours. Do not take the clonidine if your heart rate is 60 bpm or lower. Your doctor may want you to be on a different medication than the clonidine, so I would like you to call them tomorrow. The laboratory work shows that your kidney function is mildly compromised. This needs to be discussed with your primary care physician. Do not hesitate to return if any problems or any worsening symptoms arise. It was nice seeing you again. I am glad that you are healing up well from the stroke. It is essential that you have good blood pressure control. Referrals: Renee Agudelo MD (PCP) Radha Attestation Portions of this note were transcribed by Cesar Anaya. I, Dr. Kaiser personally performed the history, physical exam and medical decision-making; I reviewed and confirmed the accuracy of the information in the transcribed note. Signed by: Radha Paredes, 09/14/2016, 0054 copies to: Renee Agudelo MD, Todd P DO Sep 13, 2016 20:06 Cesar Anaya Sep 13, 2016 20:13
[2016-09-13] MEDS ORDERED: Nitroglycerin 2% 1 Gm Ointment TOPICAL ONE (20:10)
[2016-09-13] MEDS ORDERED: Labetalol 5 mg/mL 4 mL Inj IVPUSH ONE ×2 (20:10→21:00)
[2016-09-13 20:45] VITALS: BP 150/104; PULSE 84; RESP 17; O2SAT 96
[2016-09-13 21:10] LABS: BASOPHILS % (AUTO) 0.7 % (0-3); MONOCYTES % (AUTO) 12.9 % (4-12); Mean Corpuscular Hemoglobin 30.4 pg (27.0-35.0); NEUTROPHILS % (AUTO) 54.4 % (40-74); Platelet Count 209 bil/L (150-400)
[2016-09-13 21:26] VITALS: BP 147/98; PULSE 88; RESP 16; O2SAT 96
[2016-09-13 21:37] LABS: TROPONIN T 0.01 ug/L (0.0-0.011)
[2016-09-13 21:48] LABS: Magnesium 2.1 mg/dL (1.6-2.6)
[2016-09-13 22:11] VITALS: BP 134/96; PULSE 87; RESP 18; O2SAT 95
[2016-09-13 22:23] VITALS: BP 121/90; PULSE 84
[2016-09-13 23:19] VITALS: BP 102/73; PULSE 90; RESP 16; O2SAT 95
[2016-09-14 01:24] VITALS: BP 116/88; PULSE 81; RESP 18; O2SAT 95
== END 2016-09-14 01:22 | disposition home or self-care (01) ==
LOC: SED 19:25
DX: I10 Essential (primary) hypertension (principal); K21.9 Gastro-esophageal reflux disease without esophagitis; I69.398 Other sequelae of cerebral infarction; R53.1 Weakness; H53.9 Unspecified visual disturbance; Z87.891 Personal history of nicotine dependence